=== PATIENT | female | born 1955 | race Caucasian/White ===

== ENCOUNTER 2021-08-21 09:29 | Emergency (ER) | payer OTHER, SELFPAY ==
[2021-08-21 09:35] VITALS: BP 145/72; PULSE 73; RESP 16; TEMP 36.4; O2SAT 98
[2021-08-21 09:48] VITALS: BP 145/72; PULSE 73; RESP 16; TEMP 36.4; O2SAT 98
--- NOTE | 2021-08-21 10:03 | ED.URI ---
HPI - URI/Sore Throat General Chief Complaint: Upper Respiratory Infection Stated Complaint: sore throat, upper respiratory Time Seen by Provider: 08/21/21 09:51 Source: patient and RN notes reviewed Mode of arrival: ambulatory Limitations: no limitations History of Present Illness HPI Narrative: Patient presents today complaining of 5-day history of congestion, postnasal drip, sore throat, cough. Denies fever or shortness of breath. Patient states her grandson was ill last week and has passed his illness around to other members of the family. History of diabetes. Patient has been taking Emergen-C without relief. She did receive a flu vaccine. She has not been vaccinated against COVID-19. Patient declines a swab for influenza or COVID-19 today. MD elicited complaint: cough and nasal congestion Related Data Home Medications Medication Instructions Recorded Confirmed fluoxetine 20 mg PO DAILY 08/21/21 08/21/21 metformin 500 mg PO BID 08/21/21 08/21/21 rosuvastatin 5 mg PO DAILY 08/21/21 08/21/21 Allergies Allergy/AdvReac Type Severity Reaction Status Date / Time Penicillins Allergy Unknown Hives Verified 08/21/21 09:43 Review of Systems Review of Systems: CONSTITUTIONAL: Denies body aches, fever, chills, or sweats. EYES: Denies visual changes, redness, or discharge. ENT: Denies rhinorrhea, or otalgia.+ Congestion, sore throat, postnasal drip CARDIOVASCULAR: Denies chest pain, palpitations, or edema. RESPIRATORY: Deniesdyspnea. + Cough GASTROINTESTINAL: Denies abdominal pain, nausea, vomiting, or diarrhea. GENITOURINARY: Denies dysuria or hematuria. SKIN: Denies rash, itching, or wounds. MUSCULOSKELETAL: Denies back pain, joint pain, or myalgia. NEUROLOGIC: Denies headache, numbness, tingling, or weakness. PSYCH: Denies depression or anxiety. [facility] Family History Family History Father Family history of elevated blood lipids Family history of coronary artery disease Social History Social History Smoking status: Never smoker Alcohol intake: never Comments At time of signature, I have reviewed and agree with nursing past medical, surgical, social and family history unless otherwise noted. Please see nursing chart for further information. There is no relevant family history pertinent to the presenting complaint Exam Narrative: GENERAL: Well-appearing, well-nourished, and in no acute distress. HEAD: Normocephalic, atraumatic. EYES: EOMI. No redness or drainage. Conjunctivae normal. ENT: Mucous membranes pink and moist. Nares congested. No rhinorrhea. TMs normal bilaterally. Throat normal. Uvula midline. NECK: Normal AROM. Supple. No lymphadenopathy. CHEST: No respiratory distress. Clear to auscultation. HEART: Regular rate and rhythm. No murmur appreciated. Normal peripheral pulses. EXTREMITIES: Normal range of motion. No edema. SKIN: Warm, dry, no rash. Capillary refill normal. Normal skin turgor. NEURO: No focal deficits. Alert and oriented x3. Gait steady. PSYCH: Normal affect. No signs of depression or anxiety. Course Vital Signs Vital signs: Vital Signs Temperature 97.6 F 08/21/21 09:35 Pulse Rate 73 08/21/21 09:35 Respiratory Rate 16 08/21/21 09:35 Blood Pressure 145/72 H 08/21/21 09:35 Pulse Oximetry 98 08/21/21 09:35 Temperature 97.6 F 08/21/21 09:48 Pulse Rate 73 08/21/21 09:48 Respiratory Rate 16 08/21/21 09:48 Blood Pressure 145/72 H 08/21/21 09:48 Pulse Oximetry 98 08/21/21 09:48 Reviewed. Pt has been instructed to follow up with her PCP regarding her elevated blood pressure today. MDM - URI/Sore Throat Differential Diagnosis Differential diagnosis: Likely upper respiratory infection, otitis media, sinusitis, viral infection, influenza and other (COVID-19) Lab Data Labs: Strep Screen Presumptive
== END 2021-08-21 10:11 | disposition home or self-care (01) ==
PROVIDERS: Emergency Provider Nurse Practitioner; PCP Nurse Practitioner Family
DX: J06.9 Acute upper respiratory infection, unspecified (principal); E78.00 Pure hypercholesterolemia, unspecified; E11.9 Type 2 diabetes mellitus without complications; F32.A Depression, unspecified; Z96.653 Presence of artificial knee joint, bilateral
CPT/HCPCS: 87081; 87880; 99203; G0463

== ENCOUNTER 2023-03-06 12:13 | Emergency (ER) | payer OTHER, SELFPAY ==
[2023-03-06 12:33] VITALS: BP 169/77; PULSE 80; RESP 16; TEMP 36.7; O2SAT 99
--- NOTE | 2023-03-06 12:47 | ED.URI ---
HPI - URI/Sore Throat General Chief Complaint: Upper Respiratory Infection Stated Complaint: strep Time Seen by Provider: 03/06/23 12:47 Source: patient, RN notes reviewed and old records reviewed Mode of arrival: ambulatory Limitations: no limitations History of Present Illness HPI Narrative: 67-year-old female presents to the [facility] with complaints of a sore throat for 4-5 days. No treatment prior to arrival. Denies fevers. Denies cough. No other symptoms other than a sore throat. Related Data Home Medications Medication Instructions Recorded Confirmed fluoxetine 20 mg tablet 20 mg PO DAILY 08/21/21 03/06/23 metformin 500 mg tablet 500 mg PO BID 08/21/21 03/06/23 rosuvastatin 5 mg tablet 5 mg PO DAILY 08/21/21 03/06/23 glipizide 5 mg tablet 5 mg PO DAILY 03/06/23 03/06/23 Allergies Allergy/AdvReac Type Severity Reaction Status Date / Time Penicillins Allergy Intermediate Hives Verified 03/06/23 12:31 Review of Systems Review of Systems: All systems reviewed & are unremarkable except as noted in HPI and below Constitutional: Constitutional: Reports no additional constitutional complaints Eyes: Eyes: Reports no additional eye complaints ENT: Reports as per HPI and Reports sore throat Cardiovascular: Cardiovascular: Reports no additional cardiovascular complaints, Denies chest pain and Denies dyspnea Respiratory: Respiratory: Reports no additional respiratory complaints, Denies chest congestion, Denies cough and Denies dyspnea Gastrointestinal: Gastrointestinal: Reports no additional gastrointestinal complaints, Denies abdominal pain, Denies nausea and Denies vomiting Musculoskeletal: Musculoskeletal: Reports no additional musculoskeletal complaints Integumentary/Breasts: Skin/Breast: Reports system reviewed and no additional complaints, except as docu Neurologic: Reports system reviewed and no additional complaints, except as documented Psychiatric: Psychiatric: Reports no additional psychiatric complaints Allergic/Immunologic: Allergic/Immunologic: Reports no additional allergic/immunologic complaints [facility] Family History Family History Father Family history of elevated blood lipids Family history of coronary artery disease Social History Social History Smoking status: Never smoker Alcohol intake: never Comments At the time of my signature, I reviewed and agree with the nursing past medical, surgical, social, and family history. There is no relevant family history pertinent to the patient complaint. Exam Const: General: cooperative, healthy appearing, comfortable, no acute distress, well developed, alert and well nourished Nutritional Appearance: well nourished Orientation/consciousness: patient oriented x3 Limitations: no limitations HENMT: Head: normal to inspection Ears: hearing grossly normal bilaterally, external ears normal, TM's normal bilaterally and EAC's normal Face/Nose/Sinus: Normal external nose present, Normal nares present, Normal nasal mucous membranes and turbinates present and normal facial exam Face and sinus: normal facial exam Mouth: Yes Normal oral and palatal mucosa present, Yes lip normal and Yes moist mucous membranes Throat: posterior oropharynx normal, uvula midline and postnasal drainage Eyes: General: appearance normal, both eyes and all related structures Alignment and Position: alignment normal Periorbital: periorbital findings normal Pupils: Equal, round and reactive pupils present EOM: EOMs intact bilaterally Neck: Neck: normal visual inspection, full ROM, no lymphadenopathy and no meningeal signs Chest: Chest palpation & inspection: normal inspection of the chest Resp: Effort & Inspection: normal respiratory effort and able to speak in complete sentences Auscultation: clear to auscultation bilaterally, no crackles, no rales, no rhonchi and no
== END 2023-03-06 13:15 | disposition home or self-care (01) ==
PROVIDERS: Emergency Provider Nurse Practitioner; PCP Nurse Practitioner Family
DX: J02.0 Streptococcal pharyngitis (principal); E78.00 Pure hypercholesterolemia, unspecified; E11.9 Type 2 diabetes mellitus without complications; Z79.84 Long term (current) use of oral hypoglycemic drugs; F32.A Depression, unspecified; Z96.653 Presence of artificial knee joint, bilateral
CPT/HCPCS: 87081; 87147; 87880; 99213; G0463

== ENCOUNTER 2023-10-06 15:17 | Emergency (ER) | payer OTHER, SELFPAY ==
--- NOTE | ~2023-10-06 | XR_ITS ---
XR foot RT min 3V DATE: 10/06/2023 15:39 INDICATION: Dropped wrench on distal foot and toes one week ago TECHNIQUE: 4 views COMPARISON: None FINDINGS: Mild plantar and posterior calcaneal enthesopathy. There is a virtually nondisplaced fracture of the neck of the proximal phalanx of the third toe, with soft tissue swelling of this digit. No other recent fracture or dislocation is detected. IMPRESSION: Fracture of neck of proximal phalanx of third toe Reviewed, dictated and finalized at location [facility] [employer]
[2023-10-06 15:29] VITALS: BP 153/75; PULSE 82; RESP 18; TEMP 36.4; O2SAT 100
--- NOTE | 2023-10-06 15:33 | ED.LOWEXIN ---
HPI - Extremity Injury (Lower) General Chief Complaint: Extremity Injury, Lower Stated Complaint: Right Foot Injury Source: patient, RN notes reviewed and old records reviewed Mode of arrival: ambulatory Limitations: no limitations History of Present Illness HPI Narrative: 68-year-old female presents to [facility] with complaints right 3rd toe pain this started 10 days ago after she dropped a wrench on toe. Patient states does not feel it is healing as quickly as she thought it would. Patient states has slight swelling and discoloration. MD complaint: foot injury Onset (ago): day(s) () Injury: Right: toes Related Data Home Medications Medication Instructions Recorded Confirmed fluoxetine 20 mg tablet 20 mg PO DAILY 08/21/21 10/06/23 metformin 500 mg tablet 500 mg PO BID 08/21/21 10/06/23 glipizide 5 mg tablet 5 mg PO DAILY 03/06/23 10/06/23 Allergies Allergy/AdvReac Type Severity Reaction Status Date / Time Penicillins Allergy Intermediate Hives Verified 10/06/23 15:21 Review of Systems Constitutional: Constitutional: Reports no additional constitutional complaints, Denies body ache(s), Denies chills, Denies fatigue, Denies fever(s) and Denies headache(s) Eyes: Eyes: Reports no additional eye complaints and Denies blurry vision ENT: Reports system reviewed and no additional complaints, except as documented, Denies vertigo, Denies dizziness, Denies ear discharge, Denies otalgia, Denies facial pain, Denies headache(s), Denies nasal congestion, Denies nasal discharge, Denies sinus pain, Denies sinus pressure and Denies sore throat Cardiovascular: Cardiovascular: Reports no additional cardiovascular complaints, Denies chest pain, Denies chest pain at rest, Denies rapid heart rate and Denies dyspnea Respiratory: Respiratory: Reports no additional respiratory complaints, Denies chest congestion, Denies cough, Denies pain on inspiration, Denies pain with cough and Denies dyspnea Gastrointestinal: Gastrointestinal: Denies abdominal pain, Denies diarrhea, Denies nausea and Denies vomiting Musculoskeletal: Comments: Right toe /foot pain following injury Integumentary/Breasts: Skin/Breast: Denies rash Neurologic: Reports system reviewed and no additional complaints, except as documented, Denies vertigo, Denies dizziness and Denies headache(s) Endocrine: Endocrine: Denies fatigue [facility] Family History Family History Father Family history of elevated blood lipids Family history of coronary artery disease Social History Social History Smoking status: Never smoker Alcohol intake: never Comments At the time of my signature, I reviewed and agree with the nursing past medical, surgical, social, and family history. There is no relevant family history pertinent to the patient complaint. Exam Const: General: cooperative, healthy appearing, no acute distress and well nourished Nutritional Appearance: well nourished Orientation/consciousness: patient oriented x3 Limitations: no limitations HENMT: Head: normal to inspection and normocephalic Ears: external ears normal, TM's normal bilaterally, mastoids normal and Abnormal EAC present Face/Nose/Sinus: normal facial exam Face and sinus: normal facial exam Mouth: Yes Normal oral and palatal mucosa present, Yes oropharynx normal and Yes moist mucous membranes Throat: tonsils normal, uvula midline and no uvular edema Eyes: General: appearance normal, both eyes and all related structures Sclera: sclerae normal Pupils: Equal, round and reactive pupils present Resp: Effort & Inspection: normal respiratory effort, able to speak in complete sentences, no audible wheezes, no cough, no respiratory distress and no retractions Cardio: Rate: regular rate Skin: General skin exam: normal color and no rashes or lesions noted Neuro: General: patient oriented x3
[2023-10-06 15:36] VITALS: BP 153/75; PULSE 82; RESP 18; TEMP 36.4; O2SAT 100
== END 2023-10-06 16:00 | disposition home or self-care (01) ==
PROVIDERS: Emergency Provider Registered Nurse; PCP Nurse Practitioner Family
DX: S92.514A Nondisplaced fracture of proximal phalanx of right lesser toe(s), initial encounter for closed fracture (principal); W20.8XXA Other cause of strike by thrown, projected or falling object, initial encounter; E78.00 Pure hypercholesterolemia, unspecified; E11.9 Type 2 diabetes mellitus without complications; F32.A Depression, unspecified; Z96.653 Presence of artificial knee joint, bilateral
CPT/HCPCS: 73630; 99214; G0463

== ENCOUNTER 2024-08-19 17:12 | Emergency (ER) | payer OTHER, SELFPAY ==
--- NOTE | ~2024-08-19 | XR_ITS ---
EXAM: XR lumbar spine 2-3V DATE: 08/19/2024 17:52 HISTORY: low back pain . COMPARISON: None available. FINDINGS: 5 nonrib-bearing lumbar-type vertebral bodies. Pedicles intact. Exaggerated lumbar lordosi s. Moderate scoliosis. 2-3 mm retrolistheses at L1-2 through L3-4. Vertebral body heights preserved. Multilevel loss of disc height and marginal osteophytosis, severe at L5-S1. Severe facet hypertrophy and sclerosis at L4-5 and L5-S1. No fracture or dislocation. IMPRESSION: Scoliosis. Multilevel grade 1 retrolistheses. Multilevel degenerative disc disease, sever e at L5-S1. Multilevel severe facet arthropathy. Reviewed, dictated and finalized at location [facility] IMPRESSION: Scoliosis. Multilevel grade 1 retrolistheses. Multilevel degenerati ve disc disease, severe at L5-S1. Multilevel severe facet arthropathy.
[2024-08-19 17:16] VITALS: BP 186/82; PULSE 78; RESP 20; TEMP 36.8; O2SAT 100
--- NOTE | 2024-08-19 17:36 | ED_ITS ---
HPI - General Adult General Chief complaint: Back Pain/Injury Stated complaint: lower back pain Source: patient Mode of arrival: ambulatory Limitations: no limitations History of Present Illness HPI narrative: Patient presents for evaluation of low back pain for last 5 days. She cannot identify any precipitating cause or injury. Pain is constant, like an electrical shock, shooting down the posterior aspect of the right lower extremity through the buttock. She rates her pain 10/10 in severity. She denies any paresthesias. No history of similar symptoms. She tried taking tylenol and ibuprofen without any improvement in her symptoms thereafter. Related Data Home Medications Medication Instructions Recorded Confirmed metformin 500 mg tablet 500 mg PO BID 08/21/21 10/06/23 Allergies Allergy/AdvReac Type Severity Reaction Status Date / Time Penicillins Allergy Intermediate Hives Verified 10/06/23 15:21 Review of Systems Review of Systems: CONSTITUTIONAL: Denies fever, chills, or sweats. EYES: Denies visual changes, redness, or discharge. ENT: Denies rhinorrhea, congestion, sore throat, or otalgia. CARDIOVASCULAR: Denies chest pain, palpitations, or edema. RESPIRATORY: Denies cough or dyspnea. GASTROINTESTINAL: Denies abdominal pain, nausea, vomiting, or diarrhea. GENITOURINARY: Denies dysuria or hematuria. SKIN: Denies rash or itching. MUSCULOSKELETAL: Reports low back pain without radiation into the RLE NEUROLOGIC: Denies headache, numbness, dizziness, or weakness. PSYCHIATRIC: Denies anxiety or depression. [facility] Past Medical History Medical History (Updated 08/19/24 @ 18:44 by ROMI Sierra, BC) No pertinent past medical history Right sided sciatica Surgical History Surgical History History of knee replacement Family History Family History Father Family history of elevated blood lipids Family history of coronary artery disease Social History Social History Smoking status: Never smoker Alcohol intake: never Substance use: never Living arrangements: with family Gender identity (if verbalized by the patient): Female Spiritual care concerns: No Exam Narrative: GENERAL: Well-appearing, well-nourished, and in no acute distress. HEAD: Normocephalic, atraumatic. EYES: PERRLA and EOMI. ENT: Nares clear, no rhinorrhea or epistaxis. Mucous membranes moist. Oropharynx without tonsillar hypertrophy exudate or other lesions. Bilateral TMs pearly cornejo nonbulging NECK: Supple. No adenopathy or masses. No carotid bruits or JVD CHEST: Clear to auscultation. No respiratory distress. No wheezes rales or rhonchi HEART: Regular rate and rhythm. No murmur heard. Normal peripheral pulses. ABDOMEN: Soft, nontender, nondistended, normal active bowel sounds. BACK: Tenderness in midline of lumbar spine EXTREMITIES: Normal range of motion. No edema. SKIN: Warm, dry, no rash. NEURO: No focal deficits. Alert and oriented x3. PSYCH: Normal mood and affect. Course Course Emergency Course: This is a 69-year-old female who presented for evaluation of low back pain with radiation to right lower extremity. X-ray showed DDD, arthropathy, and scoliosis. Given toradol while here. She had improvement in her pain following administration of medication. Her exam is consistent with sciatica. Will dc with medrol dose natacha, hydrocodone and flexeril. Application of warm moist heat may help. Follow up with primary provider. Go to the ER for worsening symptoms. Pt in agreement with plan of care. Level of Care: Express Care Visit Vital Signs Vital signs: Vital Signs Temperature 36.8 C 08/19/24 17:16 Pulse Rate 78 08/19/24 17:16 Respiratory Rate 20 08/19/24 17:16 Blood Pressure 186/82 H 08/19/24 17:16 Pulse Oximetry 100 08/19/24 17:16 Oxygen Delivery Room Air 08/19/24 17:16 Temperature 36.8 C 08/19/24 17:16 Pulse Rate 78 08/19/24 17:16 Respiratory Rate 20 08/19/24 17:16 Blood Pressure 186/82 H 08/19/24 17:16 Pulse Oximetry 100 08/19/24 17:16 Oxygen Delivery Room Air 08/19/24 17:16 Medical Decision Making Vital Signs Vital Signs: Vital Signs Temperature 36.8 C 08/19/24 17:16 Pulse Rate 78 08/19/24 17:16 Respiratory Rate 20 08/19/24 17:16 Blood Pressure 186/82 H 08/19/24 17:16 Pulse Oximetry 100 08/19/24 17:16 Oxygen Delivery Room Air 08/19/24 17:16 Temperature 36.8 C 08/19/24 17:16 Pulse Rate 78 08/19/24 17:16 Respiratory Rate 20 08/19/24 17:16 Blood Pressure 186/82 H 08/19/24 17:16 Pulse Oximetry 100 08/19/24 17:16 Oxygen Delivery Room Air 08/19/24 17:16 Imaging Data Radiologist's impression: EXAM: XR lumbar spine 2-3V DATE: 08/19/2024 17:52 HISTORY: low back pain . COMPARISON: None available. FINDINGS: 5 nonrib-bearing lumbar-type vertebral bodies. Pedicles intact. Exaggerated lumbar lordosis. Moderate scoliosis. 2-3 mm retrolistheses at L1-2 through L3-4. Vertebral body heights preserved. Multilevel loss of disc height and marginal osteophytosis, severe at L5-S1. Severe facet hypertrophy and sclerosis at L4-5 and L5-S1. No fracture or dislocation. IMPRESSION: Scoliosis. Multilevel grade 1 retrolistheses. Multilevel degenerative disc disease, severe at L5-S1. Multilevel severe facet arthropathy. Discharge Plan Discharge Clinical Impression: Scoliosis, Right sided sciatica Patient Disposition: Home, Self-Care Condition: Stable Instructions: Antibiotic Form, Sciatica (ED) Patient Language: Macanese Prescriptions: New methylprednisolone 4 mg tablets,dose pack See Rx Instructions .ROUTE .COMPLEX Qty: 21 0RF Rx Instructions: for 6 days hydrocodone-acetaminophen 5-325 mg tablet 1 - 2 tablet PO Q6H PRN (Reason: pain) Qty: 15 0RF cyclobenzaprine 10 mg tablet 10 mg PO TID PRN (Reason: muscle spasm) Qty: 15 0RF No Action metformin 500 mg Tablet 500 mg PO BID Follow-up/Referrals: Steph Barney APRN [Primary Care Provider] - Time of Disposition: 18:44
[2024-08-19] MEDS: KETOROLAC 30 MG/ML VIAL (*BKC) IM (17:43)
== END 2024-08-19 18:50 | disposition home or self-care (01) ==
PROVIDERS: Emergency Provider Nurse Practitioner; PCP Nurse Practitioner Family
DX: M54.31 Sciatica, right side (principal); M41.9 Scoliosis, unspecified
CPT/HCPCS: 72100; 96372; 99213; G0463; J1885

== ENCOUNTER 2025-03-11 09:17 | Emergency (ER) | payer OTHER, SELFPAY ==
--- OUTSIDE RECORDS SUMMARY | 2025-03-11 09:20 | XMS_ITS | Data Portability ---
Author Organization [facility] MARIA Willis SIMaeve Larson Address [address] [place] [id number] Assessment No assessment recorded. Plan of Treatment Reminders Order Date Submit Date Provider Last Modified By Organization Details Last Modified Time Details Appointments None recorded. Lab TSH, serum or plasma 2014 015 [facility], [address] [place], [place] [address]palomo Cash, [address], [place], [address], 5 06:29:44 CBC w/ auto diff 2014 015 [facility], [address] [place] [address], [address], [place], [address], 5 06:29:42 lipid panel, serum 2014 015 [facility], [address] [place] [address], [address], [place], [address], 5 06:29:43 CMP, serum or plasma 2014 015 [facility], [address] [place], [place] [address]palomo Cash, [address], [place], [address], 5 06:29:43 HbA1c (hemoglobi n A1c), blood 2014 015 [facility], [address] [place], [place] [address]palomo Cash, [address], [place], [address], 5 06:29:44 Referral None recorded. Procedures None recorded. Surgeries None recorded. Imaging mammogram, screening 2015 016 [email or web address] Not available 6 10:46:27 EKG interpreta tion only - Needing ekg with interpreta tion- (preop eval) 2014 015 HIM[facility] Not available 5 14:52:40 x-ray, chest 2014 015 [facility] Not available 5 12:38:22 Medication Orders metformin 500 mg tablet 2014 015 [facility] [address] [place], [address], 5 16:16:32 fluoxetine 20 mg tablet 2014 015 [facility], [address] [place], [address], 5 16:16:32 metformin 500 mg tablet 2014 015 INTERFACE [id number], [address] , [place], [place], [id number], 5 10:37:47 Patient TargetsNo targets recorded. Patient Instructions Encounter Date Encounter Id Patient Instructions Last Modified By Organization Details Last Modified Time 03/07/2015 [id number] When You Want to Lose Weight: Care Instructions dbogue Not available 03/07/2015 10:37:32 06/07/2015 [id number] When You Want to Lose Weight: Care Instructions dbogue Not available 06/07/2015 16:16:32 12/06/2015 [id number] osteoarthritis: care instructions [email or web address] Not available 12/06/2015 11:17:16 When You Want to Lose Weight: Care Instructions Not available 12/06/2015 11:17:16 Reason for Referral None Reported. Results Created Date Observation Date Name Description Value Unit Range Abnormal Flag Note LastModifiedBy Organization Detail LastModifiedTime 03/07/20 15 03/08/2015 CBC w/ auto diff WBC 5.2 x10e3 /uL 3.4-10 .8 Not Available [facility] ([facility]) [address] [facility], [place], [address], 03/08/2015 06:29:42 03/07/20 15 03/08/2015 CBC w/ auto diff RBC 4.72 x10e6 /uL 3.77-5 .28 Not Available [facility] ([facility]) [address] [facility], [place], [address], 03/08/2015 06:29:42 03/07/20 15 03/08/2015 CBC w/ auto diff hemoglobin 14.0 g/dL 11.1-1 5.9 Not Available [facility] ([facility]) [address] [place], [address], 03/08/2015 06:29:42 03/07/20 15 03/08/2015 CBC w/ auto diff hematocrit 42.5 % 34.0-4 6.6 Not Available [facility] ([facility]) [address] [place], [address], 03/08/2015 06:29:42 03/07/20 15 03/08/2015 CBC w/ auto diff MCV 90 fL 79-97 Not Available [facility] ([facility]) [address] [place], [address], 03/08/2015 06:29:42 03/07/20 15 03/08/2015 CBC w/ auto diff MCH 29.7 pg 26.6-3 3.0 Not Available [facility] ([facility]) [address] [place], [address], 03/08/2015 06:29:42 03/07/20 15 03/08/2015 CBC w/ auto diff MCHC 32.9 g/dL 31.5-3 5.7 Not Available [facility] ([facility]) [address] [place], [address], 03/08/2015 06:29:42 03/07/20 15 03/08/2015 CBC w/ auto diff RDW 13.3 % 12.3-1 5.4 Not Available [facility] ([facility]) [address] [place], [address], 03/08/2015 06:29:42 03/07/20 15 03/08/2015 CBC w/ auto diff neutrophils 57 % Not Available [facility] ([facility]) [address] [place], [address], 03/08/2015 06:29:42 03/07/20 15 03/08/2015 CBC w/ auto diff lymphs 31 % Not Available [facility] ([facility]) [address] [place], [address], 03/08/2015 06:29:42 03/07/2003/08/2015 CBC w/ auto diff monocytes 8 % Not Available [facility] ([facility]) [address] [place], [address], 03/08/2015 06:29:42 03/07/2003/08/2015 CBC w/ auto diff eos 4 % Not Available [facility] ([facility]) [address] [place], [address], 03/08/2015 06:29:42 03/07/2003/08/2015 CBC w/ auto diff basos 0 % Not Available [facility] ([facility]) [address] [place], [address], 03/08/2015 06:29:42 03/07/2003/08/2015 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 0 Not Available [facility] ([facility]) [address] [place], [address], 03/08/2015 06:29:42 03/07/20 15 03/08/2015 CBC w/ auto diff lymphs (absolute) 1.6 x10e3 /uL 0.7-3. 1 Not Available [facility] ([facility]) [address] [facility], [place], [address], 03/08/2015 06:29:42 03/07/2003/08/2015 CBC w/ auto diff monocytes(ab solute) 0.4 x10e3 /uL 0.1-0. 9 Not Available [facility] ([facility]) [address] [facility], [place], [address], 03/08/2015 06:29:42 03/07/20 15 03/08/2015 CBC w/ auto diff eos (absolute) 0.2 x10e3 /uL 0.0-0. 4 Not Available [facility] ([facility]) [address] [facility], [place], [address], 03/08/2015 06:29:42 03/07/2003/08/2015 CBC w/ auto diff baso (absolute) 0.0 x10e3 /uL 0.0-0. 2 Not Available [facility] ([facility]) [address] [facility], [place], [address], 03/08/2015 06:29:42 03/07/2003/08/2015 CBC w/ auto diff immature granulocytes 0 % Not Available [facility] ([facility]) [address] [facility], [place], [address], 03/08/2015 06:29:42 03/07/2003/08/2015 CBC w/ auto diff immature grans (abs) 0.0 x10e3 /uL 0.0-0. 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 Not Available [facility] ([facility]) [address] [place], [address], 03/08/2015 06:29:42 03/07/2003/08/2015 CBC w/ auto diff hematology comments: TERMINAL MAKE UP OPERATOR Not Available [facility] ([facility] [address] [place], [address], 03/08/2015 06:29:42 03/07/2003/08/2015 CMP, serum or plasm a glucose, serum 212 mg/dL 65-99 high Not Available [facility] ([facility]) [address] [place], [address], 03/08/2015 06:29:43 03/07/2003/08/2015 CMP, serum or plasm a BUN 11 mg/dL 6-24 Not Available [facility] ([facility]) [address] [place], [address], 03/08/2015 06:29:43 03/07/2003/08/2015 CMP, serum or plasm a creatinine, serum 0.89 mg/dL 0.57-1 .00 Not Available [facility] ([facility]) [address] [place], [address], 03/08/2015 06:29:43 03/07/2003/08/2015 CMP, serum or plasm a eGFR if nonafricn AM 72 mL/mi n/1.7 3 >59 Not Available [facility] ([facility] [address] [place], [address], 03/08/2015 06:29:43 03/07/2003/08/2015 CMP, serum or plasm a eGFR if africn AM 83 mL/mi n/1.7 3 >59 Not Available [facility] ([facility]) [address] [place], [address], 03/08/2015 06:29:43 03/07/2003/08/2015 CMP, serum or plasm a BUN/creatini ne ratio 12 9-23 Not Available [facility] ([facility]) [address] [place], [address], 03/08/2015 06:29:43 03/07/2003/08/2015 CMP, serum or plasm a sodium, serum 140 mmol/ L 134-14 4 Not Available [facility] ([facility]) [address] [place], [address], 03/08/2015 06:29:43 03/07/2003/08/2015 CMP, serum or plasm a potassium, serum 4.3 mmol/ L 3.5-5. 2 Not Available [facility] ([facility]) [address] [place], [address], 03/08/2015 06:29:43 03/07/2003/08/2015 CMP, serum or plasm a chloride, serum 98 mmol/ L 97-108 Not Available [facility] ([facility]) [address] [place], [address], 03/08/2015 06:29:43 03/07/2003/08/2015 CMP, serum or plasm a carbon dioxide, total 25 mmol/ L 18-29 Not Available [facility] ([facility]) [address] [place], [address], 03/08/2015 06:29:43 03/07/2003/08/2015 CMP, serum or plasm a calcium, serum 9.6 mg/dL 8.7-10 .2 Not Available [facility] ([facility]) [address] [place], [address], 03/08/2015 06:29:43 03/07/2003/08/2015 CMP, serum or plasm a protein, total, serum 7.2 g/dL 6.0-8. 5 Not Available [facility] ([facility]) [address] [place], [address], 03/08/2015 06:29:43 03/07/2003/08/2015 CMP, serum or plasm a albumin, serum 4.6 g/dL 3.5-5. 5 Not Available [facility] ([facility]) [address] [place], [address], 03/08/2015 06:29:43 03/07/2003/08/2015 CMP, serum or plasm a globulin, total 2.6 g/dL 1.5-4. 5 Not Available [facility] ([facility]) [address] [place], [address], 03/08/2015 06:29:43 03/07/2003/08/2015 CMP, serum or plasm a A/G ratio 1.8 1.1-2. 5 Not Available [facility] ([facility]) [address] [place], [address], 03/08/2015 06:29:43 03/07/2003/08/2015 CMP, serum or plasm a bilirubin, total 0.4 mg/dL 0.0-1. 2 Not Available [facility] ([facility]) [address] [place], [address], 03/08/2015 06:29:43 03/07/2003/08/2015 CMP, serum or plasm a alkaline phosphatase, S 84 IU/L 39-117 Not Available [facility] ([facility]) [address] [facility] [place], [address], 03/08/2015 06:29:43 03/07/2003/08/2015 CMP, serum or plasm a AST (SGOT) 19 IU/L 0-40 Not Available [facility] ([facility]) [address] [facility] [place], [address], 03/08/2015 06:29:43 03/07/2003/08/2015 CMP, serum or plasm a ALT (SGPT) 16 IU/L 0-32 Not Available [facility] ([facility]) [address] [facility] [place], [address], 03/08/2015 06:29:43 03/07/20 15 03/08/2015 lipid panel , serum cholesterol, total 239 mg/dL 100-19 9 high Not Available [facility] ([facility]) [address] [facility] [place], [address], 03/08/2015 06:29:43 03/07/20 15 03/08/2015 lipid panel , serum triglyceride s 598 mg/dL 0-149 critical high Not Available [facility] ([facility]) [address] [place], [address], 03/08/2015 06:29:43 03/07/20 15 03/08/2015 lipid panel , serum HDL cholesterol 29 mg/dL >39 low ACCOR DING TO ATP-I II GUIDE LINES , HDL-C >59 MG/DL IS CONSI DERED A NEGAT YAYA RISK FACTO R FOR CHD. Not Available [facility] ([facility]) [address] [place], [address], 03/08/2015 06:29:43 03/07/20 15 03/08/2015 lipid panel , serum VLDL cholesterol eileen COMMEN T mg/dL 5-40 THE CALCU LATIO N FOR THE VLDL BETSY STERO L IS NOT VALID WHEN TRIGL YCERI DE LEVEL IS >400 MG/DL . Not Available [facility] ([facility]) [address] [facility], [place], [address], 03/08/2015 06:29:43 03/07/20 15 03/08/2015 lipid panel , serum LDL cholesterol calc COMMEN T mg/dL 0-99 TRIGL YCERI DE RESUL T INDIC ATED IS TOO HIGH FOR AN ACCUR ATE LDL BETSY STERO L ESTIM ATION . Not Available [facility] ([facility]) [address] [place], [address], 03/08/2015 06:29:43 03/07/20 15 03/08/2015 lipid panel , serum comment: TERMINAL MAKE UP OPERATOR Not Available [facility] ([facility]) [address] [facility] [place], [address], 03/08/2015 06:29:43 03/07/20 15 03/08/2015 HbA1c (hemo globi n A1c), blood hemoglobin A1C 9.5 % 4.8-5. 6 high INCRE ASED RISK FOR DIABE ZAHIRA: 5.7 - 6.4 DIABE ZAHIRA: >6.4 GLYCE STEPHANIE CONTR OL FOR ADULT S WITH DIABE ZAHIRA: <7.0 Not Available [facility] ([facility]) [address] [facility] [place], [address], 03/08/2015 06:29:44 03/07/20 15 03/08/2015 TSH, serum or plasm a TSH 2.200 uIU/m L 0.450- 4.500 Not Available [facility] ([facility]) [address] [facility] [place], [address], 03/08/2015 06:29:44 11/27/19 16 11/28/2015 CMP, serum or plasm a glucose, serum 135 mg/dL 65-99 above high normal Not Available [facility] ([facility]) [address] [facility] [place], [address], 11/28/2015 06:28:38 11/27/19 16 11/28/2015 CMP, serum or plasm a BUN 13 mg/dL 6-24 Not Available [facility] ([facility]) [address] [facility] [place], [address], 11/28/2015 06:28:38 11/27/19 16 11/28/2015 CMP, serum or plasm a creatinine, serum 0.82 mg/dL 0.57-1 .00 Not Available [facility] ([facility]) [address] [facility] [place], [address], 11/28/2015 06:28:38 11/27/19 16 11/28/2015 CMP, serum or plasm a eGFR if nonafricn AM 79 mL/mi n/1.7 3 >59 Not Available [facility] ([facility]) [address] [facility] [place], [address], 11/28/2015 06:28:38 11/27/19 16 11/28/2015 CMP, serum or plasm a eGFR if africn AM 91 mL/mi n/1.7 3 >59 Not Available [facility] ([facility]) [address] [facility] [place], [address], 11/28/2015 06:28:38 11/27/19 16 11/28/2015 CMP, serum or plasm a BUN/creatini ne ratio 16 9-23 Not Available [facility] ([facility]) [address] [place], [address], 11/28/2015 06:28:38 11/27/19 16 11/28/2015 CMP, serum or plasm a sodium, serum 141 mmol/ L 134-14 4 Not Available [facility] ([facility]) [address] [place], [address], 11/28/2015 06:28:38 11/27/19 16 11/28/2015 CMP, serum or plasm a potassium, serum 4.7 mmol/ L 3.5-5. 2 Not Available [facility] ([facility]) [address] [place], [address], 11/28/2015 06:28:38 11/27/19 16 11/28/2015 CMP, serum or plasm a chloride, serum 102 mmol/ L 97-108 Not Available [facility] ([facility]) [address] [place], [address], 11/28/2015 06:28:38 11/27/19 16 11/28/2015 CMP, serum or plasm a carbon dioxide, total 24 mmol/ L 18-29 Not Available [facility] ([facility]) [address] [place], [address], 11/28/2015 06:28:38 11/27/19 16 11/28/2015 CMP, serum or plasm a calcium, serum 8.9 mg/dL 8.7-10 .2 Not Available [facility] ([facility] [address] [place], [address], 11/28/2015 06:28:38 11/27/19 16 11/28/2015 CMP, serum or plasm a protein, total, serum 6.7 g/dL 6.0-8. 5 Not Available [facility] ([facility]) [address] [place], [address], 11/28/2015 06:28:38 11/27/19 16 11/28/2015 CMP, serum or plasm a albumin, serum 4.1 g/dL 3.5-5. 5 Not Available [facility] ([facility]) [address] [place], [address], 11/28/2015 06:28:38 11/27/19 16 11/28/2015 CMP, serum or plasm a globulin, total 2.6 g/dL 1.5-4. 5 Not Available [facility] ([facility] [address] [place], [address], 11/28/2015 06:28:38 11/27/19 16 11/28/2015 CMP, serum or plasm a A/G ratio 1.6 1.1-2. 5 Not Available [facility] ([facility] [address] [place], [address], 11/28/2015 06:28:38 11/27/1911/28/2015 CMP, serum or plasm a bilirubin, total 0.3 mg/dL 0.0-1. 2 Not Available [facility] ([facility] [address] [place], [address], 11/28/2015 06:28:38 11/27/19 16 11/28/2015 CMP, serum or plasm a alkaline phosphatase, S 92 IU/L 39-117 Not Available [facility] ([facility]) [address] [facility], [place], [address], 11/28/2015 06:28:38 11/27/19 16 11/28/2015 CMP, serum or plasm a AST (SGOT) 14 IU/L 0-40 Not Available [facility] ([facility]) [address] [place], [address], 11/28/2015 06:28:38 11/27/19 16 11/28/2015 CMP, serum or plasm a ALT (SGPT) 14 IU/L 0-32 Not Available [facility] ([facility]) [address] [facility], [place], [address], 11/28/2015 06:28:38 11/27/19 16 11/28/2015 lipid panel , serum cholesterol, total 205 mg/dL 100-19 9 above high normal Not Available [facility] ([facility]) [address] [place], [address], 11/28/2015 06:28:40 11/27/19 16 11/28/2015 lipid panel , serum triglyceride s 362 mg/dL 0-149 above high normal Not Available [facility] ([facility]) [address] [place], [address], 11/28/2015 06:28:40 11/27/19 16 11/28/2015 lipid panel , serum HDL cholesterol 34 mg/dL >39 below low normal ACCOR DING TO ATP-I II GUIDE LINES , HDL-C >59 MG/DL IS CONSI DERED A NEGAT YAYA RISK FACTO R FOR CHD. Not Available [facility] ([facility]) [address] [place], [address], 11/28/2015 06:28:40 11/27/19 16 11/28/2015 lipid panel , serum VLDL cholesterol eileen 72 mg/dL 5-40 above high normal Not Available [facility] ([facility]) [address] [facility] [place], [address], 11/28/2015 06:28:40 11/27/19 16 11/28/2015 lipid panel , serum LDL cholesterol calc 99 mg/dL 0-99 Not Available [facility] ([facility]) [address] [facility] [place], [address], 11/28/2015 06:28:40 11/27/19 16 11/28/2015 lipid panel , serum comment: TERMINAL MAKE UP OPERATOR Not Available [facility] ([facility]) [address] [facility] [place], [address], 11/28/2015 06:28:40 11/27/19 16 11/28/2015 HbA1c (hemo globi n A1c), blood hemoglobin A1C 7.4 % 4.8-5. 6 above high normal PRE-D IABET ES: 5.7 - 6.4 DIABE ZAHIRA: >6.4 GLYCE STEPHANIE CONTR OL FOR ADULT S WITH DIABE ZAHIRA: <7.0 Not Available [facility] ([facility]) [address] [facility], [place], [address], 11/28/2015 06:28:40 11/27/19 16 11/28/2015 TSH, serum or plasm a TSH 3.600 uIU/m L 0.450- 4.500 Not Available [facility] ([facility]) [address] [place], [address], 11/28/2015 06:28:41 03/15/20 15 03/14/2015 x-ray , chest No observ ation record ed. [email or web address] Not Available 2014 16:02:25 03/21/20 15 03/13/2015 EKG inter preta tion only No observ ation record ed. dbogue Not Available 2014 16:02:25 Result Notes None recorded. Problems Name Problem SNOMED Code Status Onset Date Resolution Date Notes Provider Name and Address Organization Details Recorded Time Diabetes mellitus 27958301 Active Steph anne, [place] - SI 6 09:47:56 Obesity 186556720 Active Steph anne, [place] - SI 6 09:47:56 Hyperlipidemia 80337489 Active Steph anne, [place] - [place] 6 09:47:56 Mixed anxiety and depressive disorder 721143023 David anne, [place] - [place] 6 09:47:56 Osteoarthritis 577997613 Active Vanessa anne, [place] - [place] 6 09:47:56 Problem Notes None recorded. Procedures Surgical History Date Name Laterality Status Provider Name and Address Organization Details Recorded Time 4 Breast Surgery completed Jeremie Oneal MA [facility] 03/07/2015 10:02:47 Imaging Results None recorded. Procedure Notes None recorded. Medical Equipment None Reported. Allergies Allergen ID Allergen Name Allergen Category Reaction Reaction Severity Criticality Documentation Date Start Date Code Code System Note Provider Name and Address Organization Details Recorded Time 66652 Product containin g penicilli n (product) medicatio n anaphylax is severe Not available 03/07/2015 71608 8001 SNOMED Jeremie Oneal MA null, [place] - [place] 5 10:02:47 Medications Name Sig Start Date Stop Date Status Note LastModified by Organization Details LastModified Time metformin 500 mg tablet TAKE ONE TABLET BY MOUTH TWICE DAILY active Not Available Not Available No t Available simvastatin 20 mg tablet TAKE ONE TABLET BY MOUTH ONCE DAILY AT BEDTIME 016 active Not Available Not Available Not Avai lable fluoxetine 20 mg tablet TAKE ONE TABLET BY MOUTH ONCE DAILY active Not Available Not Available No t Available fluoxetine 10 mg capsule TAKE ONE capsule BY MOUTH ONCE DAILY 016 active Not Available Not Available Not Avai lable Pneumovax-23 25 mcg/0.5 mL injection syringe active Not Available Not Available Not Available fenofibrate 160 mg tablet Take 1 tablet(s) EVERY NIGHT by oral route. active Not Available Not Available No t Available Afluria [id number] (PF) 45 mcg (15 mcg x 3)/0.5 mL IM syringe active Not Available Not Available Not Available Vitals Date Recorded Body height Oxygen saturation Oxygen saturation in Arterial blood by Pulse oximetry Body weight Heart rate Body temperature Body mass index (BMI) Systolic blood pressure Diastolic blood pressure Provider Name and Address Organization Details Last Updated DateTime 6 162.56 cm 100 % 100 % 08071.6 66035 g 64 /min 97.6 [degF] 35.6 kg/m2 122 mm[Hg] 80 mm[Hg] Jeremie Oneal MA [facility] 6 09:13:15 Date Recorded Oxygen saturation Oxygen saturation in Arterial blood by Pulse oximetry Body weight Body temperature Body height Body mass index (BMI) Heart rate Systolic blood pressure Diastolic blood pressure Provider Name and Address Organization Details Last Updated DateTime 5 98 % 98 % 56031.6 43775 g 98.2 [degF] 162.56 cm 37.1 kg/m2 77 /min 130 mm[Hg] 90 mm[Hg] Jeremie Oneal MA [facility] 5 10:02:47 Date Recorded Body weight Oxygen saturation Oxygen saturation in Arterial blood by Pulse oximetry Body temperature Heart rate Body mass index (BMI) Body height Systolic blood pressure Diastolic blood pressure Provider Name and Address Organization Details Last Updated DateTime 5 09362.8 25922 g 98 % 98 % 98.3 [degF] 73 /min 35.7 kg/m2 162.56 cm 126 mm[Hg] 78 mm[Hg] Jeremie Oneal MA [facility] 5 15:40:57 Social History Question Answer Notes LastModified by Organizat ion Details LastModified Time Tobacco Smoking Status Never Smoker Jeremie Oneal MA [facility], [facility] 03/07/2015 10:02:47 What Is Your Level Of Caffeine Consumption? Moderate [email or web address] Information not available 03/07/2015 What Type Of Diet Are You Following? REGULAR [email or web address] Information not available 03/07/2015 How Much Tobacco Do You Smoke? No [email or web address] Information not available 03/07/2015 General Stress Level High [email or web address] Information not available 03/07/2015 Sex: Unknown Functional Status Question Answer Note LastModified by Organization D etails LastModified Time What is your level of alcohol consumption? None [email or web address] Information not available 03/07/2015 What is your exercise level? None [email or web address] Information not available 03/07/2015 Mental Status None recorded. Family History Relationship Description Onset Age of this Age Resolved Age Notes LastModified by Organization Details LastModified Time Mother Carcinoma of breast Not available 2014 10:02:47 Medical History Condition Response Coronary Artery Disease N Other N Atrial Fibrillation N High Blood Pressure N Depression N COPD N Blood Clots N Anxiety Disorder N Muscle, Joint, or Bone Problems N Acid Reflux (GERD) N Cancer Y Stroke N High Cholesterol N Liver Disease N Headaches N Kidney or Bladder Problems N Thyroid Problems N GI Problems N Skin Problems N Anemia N Heart Attack (PA) N Diabetes Y Seizures/Epilepsy N Asthma N Allergies N Hepatitis N Heart Failure N Osteoporosis N Gynecological HistoryNo gynecological history recorded. Obstetrics History GPAL:G 0 P 0 0 0 0 Immunizations Vaccine Type Date Status Note Provider Nam e and Address Organization Details Recorded Time Tdap 03/07/2015 completed Not Available [facility]/2019 02:30:17 Past Encounters Encounter ID Performer Location Encounter Start Date Encounter Closed Date Diagnosis/Indication Diagnosis SNOMED-CT Code Diagnosis ICD10 Code Diagnosis Note [id number] [facility] ([facility]) [address] [place] [address] 03/07/2015 09:48:27 03/07/2015 10:44:44 Pre-surgery evaluation [id number] Patient has bilateral knee replacemen t schedule with Dr. Velasquez in April. Diabetes mellitus 15511011 ADA diet. Restarting metformin 500 mg bid. Obesity 907132916 Encour aged diet and exercise. Will improve activity after knee surgery. Active or passive immunization [id number] Needs Tdap. [id number] [facility] ([facility]ult [facility]) [address] [place] [address] 06/07/2015 15:18:39 06/07/2015 16:14:37 Mixed anxiety and depressive disorder 503757261 Continue fluoxetine 20 mg daily. Coping techniques discussed. Hyperlipidemia 80094915 Continue simvastati n 20 mg q hs. Labs freddie. Refill medication after labs in case dose needing changed. Obesity [id number] Diet a nd exercise encouraged . Diabetes mellitus [id number] Metformin 500 mg bid to continue. ADA diet. Labs freddie. [id number] Steph Barney [facility] [place] (Adult Med) [address] [place] [address] 12/06/2015 09:01:57 12/06/2015 10:46:27 Hyperlipidemia [id number] E78.2 Wishes to decrease cholestero l on own with diet and exercise. Stop fenofibrat e and simvastati n. Obesity [id number] E66.9 Diet and exercise encouraged . Diabetes mellitus [id number] E11.9 Metformin 500 mg bid to continue. ADA diet. A1C 7.3. Continue to goal a1c <7.0. Mixed anxi ety and depressive disorder [id number] F34.1 Continue fluoxetine 20 mg daily. Coping techniques discussed. Osteoarthritis [id number] M19.90 Was going to have right knee surgery with Dr. Garcia, however job change, insurance change, so patient unable to get surgery done 12/31/15 as previously planned. Screening mammography [id number] Z12.31 Will order for patient to get prior to insurance change 01/02/16. Health Concerns Section Related Observation LastModified by Organization Detai ls LastModified Time None Recorded Concern Status LastModified by Organization Details LastModified Time None Recorded Advance Directives Directive None Recorded Payers Encounter Date Sequence Insurance Name Policy Number Policy Hackett Covered Member ID Hackett Member ID Guarantor Name 03/07/2015 1 [place] DEPARTMENT OF PUBLIC A[place] [facility] [id number] [facility] 06/07/2015 1 [facility] (MEDICAID HMO) [id number] [facility] [id number] [facility] 12/06/2015 1 [facility] (MEDICAID HMO) [id number] [facility] [id number] [facility] Notes Date Note Type Note Provider Name and Address Organization Details Recorded Time 03/07/2015 text/html Left breast lumpectomy-benign. Last mammogram 2011 and were all normal. 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 Last pap 2010. Mother with breast cancer diagnosed age 7575 years old. Father - acute leukemia. Declines flu shot every fall. Tdap > 10 years ago. Colonoscopy 2011- colonoscopy place in [facility], 1 polyp removed. Patient to get records for us to determine follow up. 19 years ago had severe kidney infection in right kidney. Has used ibuprofen routinely for discomfort over the years. Wants labs to check kidney function as well- also required for pre-op. Left lateral knee with scar from skin cancer- melanoma. ANA MARIA Rich 03/07/2015 10:38:08 06/07/2015 text/html Rescheduled mammogram/pap/ellie al exam due to pt schedule. Colonoscopy few years ago had polyp- 2017 due again. ANA MARIA Rich 06/07/2015 16:16:50 12/06/2015 text/html Diabetes F/UReported bypatient.Labs:las t A1C result: 7.3Notes:Doing well on metformin and ADA diet.Hyperlipidemi aReported bypatient.Type of hyperlipidemia:com bined Control:improving Compliance:complia nt with dietNotes:Doesn't wish to start statin or fenofibrate. Wishes to do diet mods only. ANA MARIA Rich 12/06/2015 09:48:45 OBGyn Episode No OBEpisode recorded.
--- OUTSIDE RECORDS SUMMARY | 2025-03-11 09:20 | XMS_ITS | Referral Summary ---
Author Organization [facility] Address [address] [place] [address] Care Team Providers Care Automotive Quality Engineer Name Role Phone Steph Barney TREE TRIMMING SUPERVISOR Primary Care Provider + Allergies Active Allergy Reactions Criticality Noted Date Comments Penicillins Medications thiamine (vitamin B-1) 100 mg tablet 100 mg. 0 0 5 Active calcium carbonate (CALCIUM 500) 1,250 MG (500 mg of elemental calcium) tablet 0 0 5 Active ibuprofen (ADVIL,MOTRIN) 200 mg tablet take 2 Tablet by oral route every 4 hours as needed with food 0 0 5 Active metFORMIN (GLUCOPHAGE) 500 mg tablet take 1 tablet by oral route every day with morning and evening meals 0 0 5 Active VITAMIN D2 50,000 unit capsule 7 Active clindamycin (CLEOCIN) 300 mg capsule Take two capsules PO one hour to dental work 2 capsule 4 2 Active clindamycin (CLEOCIN) 300 mg capsule Take 2 tablets 1 hour prior to procedure and one tablet 6 hours after procedure 3 capsule 4 Active FLUoxetine (PROzac) 20 mg tablet 4 Active clindamycin (CLEOCIN) 300 mg capsule TAKE 3 CAPSULES BY MOUTH 1 HOUR PRIOR TO PROCEDURE AND 1 CAPSULE 6 HOURS AFTER PROCEDURE 3 capsule 4 Active Active Problems Problem Noted Date Diagnosed Date Acquired genu valgum 01/16/2015 Overview (01/09/2017): 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 Never 05/11/2024 Q2: How many drinks containi ng alcohol do you have on a typical day when you are drinking? Patient does not drink Q3: How often do you have si x or more drinks on one occasion? 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 Gender Identity Not on file Sexual Orientation Not on file Last Filed Vital Signs Vital Sign Reading Time Taken Comments Blood Pressure 155/80 05/11/2024 3:00 PM CDT Pulse 78 05/11/2024 3:00 PM CDT Temperature - - Respiratory Rate 18 05/11/2024 3:00 PM CDT Oxygen Saturation - - Inhaled Oxygen Concentration - - Weight 89.4 kg (197 lb) 05/11/2024 3:00 PM CDT Height 165.1 cm (5' 5) 05/11/2024 3:00 PM CDT Body Mass Index 32.78 05/11/2024 3:00 PM CDT Plan of Treatment Not on file Insurance [facility] H[facility]/PPO Address: [address] [address] [place] [address] Care Teams Automotive Quality Engineer Relationship Specialty Start Date End Date Steph Barney NP PCP - General 03/26/17
--- OUTSIDE RECORDS SUMMARY | 2025-03-11 09:20 | XMS_ITS | Clinical Summary ---
Author Organization [facility] Address [address] [place] [address] Care Team Providers Care Type Disk Quality Control Supervisor Name Role Phone Steph Barney DEPARTMENT OF SOCIOLOGY CHAIR Primary Care Provider + Allergies Active Allergy [...] Varus deformity, not elsewhere classified, right knee Surgical History Surgery Date Site/Laterality Comments TOTAL KNEE ARTHROPLASTY 05/18/2017 Bilateral Family History Medical History Relation Name Comments Heart disease Other 1 Family history of heart problems; Cancer Other 2 Family history of cancer; Relation Name Status Comments Other 1 Other 2 Social History Tobacco Use Types Packs/Day Years [...] on file 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 Gender Identity Not on file Sexual Orientation Not on file Obstetrics History Last Filed Vital Signs Vital Sign Reading [...] 05/11/2024 3:00 PM CDT Plan of Treatment Health Maintenance Due Date Last Done Comments Breast Cancer Screening-Mammogram 1957 Colon Cancer Screening-Colonoscopy 1957 Depression Screening 1957 Fall Risk Assessment 1957 Hepatitis C Screening 1957 Osteoporosis Screening-Bone Density Scan 1957 Hepatitis B Screening 1975 Pneumococcal vaccine 65+ (2 of 2 - PCV) 08/09/2016 08/09/2015 Well Visit 65+ 2022 Covid-19 Vaccine ( season) 2024 Influenza Vaccine (Season Ended) 2025 05/24/20 20, 08/09/2015 DTaP/Tdap/Td Vaccine (4 - Td or Tdap) 08/05/2032 08/05/2022, 03/07/2015, 10/04/2014 Zoster Vaccine Completed 12/21/2022, 09/06/2021 Insurance [facility] Care Teams Type Disk Quality Control Supervisor Relationship Specialty Start Date End Date Steph Barney NP PCP - General 03/26/17
[2025-03-11 09:24] VITALS: BP 143/74; PULSE 71; RESP 20; TEMP 36.4; O2SAT 99
[2025-03-11 09:45] LABS: EDSTREPNEGPOS1 Negative (Negative)
--- NOTE | 2025-03-11 09:50 | ED.GENADULT ---
HPI - General Adult General Chief complaint: Upper Respiratory Infection Stated complaint: Sore Throat Source: patient Mode of arrival: ambulatory Limitations: no limitations History of Present Illness HPI narrative: Patient presents for evaluation sick symptoms. Symptoms include sore throat, mild cough and diarrhea. Symptom onset four days ago. No fever, chills, nausea, vomiting or SOB. She recently spent time with her grandchildren who have been sick. She has been taking some OTC natural remedies for her symptoms. She does not smoke. Related Data Home Medications ?Medication ?Instructions ?Recorded ?Confirmed ?Last Taken ?Type No Home Medications 03/11/25 03/11/25 Unknown History Allergies Allergy/AdvReac Type Severity Reaction Status Date / Time Penicillins Allergy Intermediate Hives Verified 03/11/25 09:44 Review of Systems Review of Systems: CONSTITUTIONAL: Denies fever, chills, or sweats. EYES: Denies visual changes, redness, or discharge. ENT: Reports sore throat. Denies rhinorrhea, congestion, or otalgia. CARDIOVASCULAR: Denies chest pain, palpitations, or edema. RESPIRATORY: Reports mild cough. Denies dyspnea. GASTROINTESTINAL: Reports diarrhea. Denies abdominal pain, nausea, vomiting GENITOURINARY: Denies dysuria or hematuria. SKIN: Denies rash or itching. MUSCULOSKELETAL: Denies back pain, joint pain, or myalgia. NEUROLOGIC: Denies headache, numbness, dizziness, or weakness. PSYCHIATRIC: Denies anxiety or depression. PMFSH Past Medical History Medical History Right sided sciatica No pertinent past medical history Surgical History Surgical History History of knee replacement Family History Family History Father Family history of elevated blood lipids Family history of coronary artery disease Social History Social History Smoking status: Never smoker Alcohol intake: never Substance use: never Living arrangements: with family Gender identity (if verbalized by the patient): Female Spiritual care concerns: No Exam Narrative: GENERAL: Well-appearing, well-nourished, and in no acute distress. HEAD: Normocephalic, atraumatic. EYES: PERRLA and EOMI. ENT: Nares clear, no rhinorrhea or epistaxis. Mucous membranes moist. Oropharynx without tonsillar hypertrophy exudate or other lesions. Bilateral TMs pearly cornejo nonbulging NECK: Supple. No adenopathy or masses. No carotid bruits or JVD CHEST: Clear to auscultation. No respiratory distress. No wheezes rales or rhonchi HEART: Regular rate and rhythm. No murmur heard. Normal peripheral pulses. ABDOMEN: Soft, nontender, nondistended, normal active bowel sounds. EXTREMITIES: Normal range of motion. No edema. SKIN: Warm, dry, no rash. NEURO: No focal deficits. Alert and oriented x3. PSYCH: Normal mood and affect. Course Course Emergency Course: This is a 69year old that presented for evaluation of sick symptoms. Rapid strep negative. Will send culture. OTC agents for symptom management. Follow up with primary provider. Go to the emergency department for worsening symptoms. Patient is in agreement with plan care. Level of Care: Express Care Visit Vital Signs Vital signs: Vital Signs Temperature 36.4 C 03/11/25 09:24 Pulse Rate 71 03/11/25 09:24 Respiratory Rate 20 03/11/25 09:24 Blood Pressure 143/74 H 03/11/25 09:24 Pulse Oximetry 99 03/11/25 09:24 Oxygen Delivery Room Air 03/11/25 09:24 Temperature 36.4 C 03/11/25 09:24 Pulse Rate 71 03/11/25 09:24 Respiratory Rate 20 03/11/25 09:24 Blood Pressure 143/74 H 03/11/25 09:24 Pulse Oximetry 99 03/11/25 09:24 Oxygen Delivery Room Air 03/11/25 09:24 Medical Decision Making Vital Signs Vital Signs: Vital Signs Temperature 36.4 C 03/11/25 09:24 Pulse Rate 71 03/11/25 09:24 Respiratory Rate 20 03/11/25 09:24 Blood Pressure 143/74 H 03/11/25 09:24 Pulse Oximetry 99 03/11/25 09:24 Oxygen Delivery Room Air 03/11/25 09:24 Temperature 36.4 C 03/11/25 09:24 Pulse Rate 71 03/11/25 09:24 Respiratory Rate 20 03/11/25 09:24 Blood Pressure 143/74 H 03/11/25 09:24 Pulse Oximetry 99 03/11/25 09:24 Oxygen Delivery Room Air 03/11/25 09:24 Lab Data Labs: Lab Results 03/11/25 Range/Units 09:43 POC Grp A Strep Screen Negative (Negative) Discharge Plan Discharge Clinical Impression: Acute viral syndrome Patient Disposition: Home Condition: Stable Instructions: Antibiotic Form, Viral Syndrome (ED) Patient Language: [place] Islander Prescriptions: No Action No Home Medications Follow-up/Referrals: Steph Barney APRN [Primary Care Provider] - Time of Disposition: 09:48
== END 2025-03-11 09:50 | disposition home or self-care (01) ==
PROVIDERS: Emergency Provider Nurse Practitioner; PCP Nurse Practitioner Family
DX: B34.9 Viral infection, unspecified (principal)
CPT/HCPCS: 87081; 87880; 99213; G0463

== ENCOUNTER 2025-03-14 10:16 | Emergency (ER) | payer OTHER, SELFPAY ==
--- NOTE | ~2025-03-14 | XR_ITS ---
XR chest 2V 03/14/2025 11:17 Indication: Cough and shortness of breath Procedure: 2 view chest Comparison: No prior studies for comparison. Findings: Right basilar infiltrate may represent atelectasis or developing pneumonia. There is promin ent right cardiophrenic angle fat pad. No pleural effusion, edema or pneumothorax. No acute osseous a bnormality. Heart size normal. Impression: 1: Right basilar infiltrate may represent atelectasis or developing pneumonia. Reviewed, dictated and finalized at location B. Impression: 1: Right basilar infiltrate may represent atelectasis or developing pneumonia.
[2025-03-14 10:20] VITALS: BP 135/67; PULSE 91; RESP 16; TEMP 37.3; O2SAT 98
[2025-03-14 10:39] LABS: EDSTREPNEGPOS1 Negative (Negative)
[2025-03-14 10:45] LABS: EDCOVIDSCREEN Negative (Negative); EDINFLUASCREEN Negative (Negative); EDINFLUBSCREEN Negative (Negative)
--- NOTE | 2025-03-14 10:55 | ED_ITS ---
HPI - URI/Sore Throat General Chief Complaint: Upper Respiratory Infection Stated Complaint: Sore Throat/Cough Time Seen by Provider: 03/14/25 10:55 Source: patient Mode of arrival: ambulatory Limitations: no limitations History of Present Illness HPI Narrative: 69-year-old female presents with complaint of nasal congestion, cough, fatigue, chest congestion, low-grade fever. Symptoms for the past 4-5 days. Re ports symptoms getting progressively worse. Not taking any vzag-bin-tooezbb medications to treat her symptoms. All systems reviewed and negative except as noted above. Related Data Home Medications ?Medication ?Instructions ?Recorded ?Confirmed ?Last Taken ?Type No Home Medications 03/11/25 03/14/25 Unknown History Allergies Allergy/AdvReac Type Severity Reaction Status Date / Time Penicillins Allergy Intermediate Hives Verified 03/14/25 10:29 Review of Systems Review of Systems: CONSTITUTIONAL: Denies fever, chills, or sweats. reports fatigue. EYES: Denies visual changes, redness, or discharge. ENT: Reports rhinorrhea, congestion, sore throat. Denies otalgia. CARDIOVASCULAR: Denies chest pain, palpitations, or edema. RESPIRATORY: Reports cough chest congestion. Denies dyspnea. GASTROINTESTINAL: Denies abdominal pain, nausea, vomiting, or diarrhea. GENITOURINARY: Denies dysuria or hematuria. SKIN: Denies rash or itching. MUSCULOSKELETAL: Denies back pain, joint pain, or myalgia. NEUROLOGIC: Denies headache, numbness, or weakness. PSYCHIATRIC: Denies anxiety or depression. All other systems reviewed are negative, except as documented in HPI. [facility] Past Medical History Medical History Right sided sciatica No pertinent past medical history Surgical History Surgical History History of knee replacement Family History Family History Father Family history of elevated blood lipids Family history of coronary artery disease Social History Social History Smoking status: Never smoker Alcohol intake: never Substance use: never Living arrangements: with family Gender identity (if verbalized by the patient): Female Spiritual care concerns: No Comments At time of signature, agree with nursing past medical, surgical, social and family history. There is no relevant family history pertinent to the presenting complaint. Exam Narrative: GENERAL: This is a well-nourished, well-developed patient, ill-appearing but no acute distress HEAD: normocephalic, atraumatic. EYES: PERRL. Sclera clear/white. Vision is grossly intact. EARS: External ears normal, auditory canals clear and without drainage, TMs normal without perforation. Hearing grossly intact. NOSE: External nose normal with congestion, purulent nasal drainage THROAT: Mucous membranes moist, erythematous with postnasal drainage NECK: Neck supple, non-tender without lymphadenopathy, masses or thyromegaly. CARDIOVASCULAR: Regular rate and rhythm without murmurs, gallops, or rubs. RESPIRATORY: mildly decreased throughout all lung butt. Breath sounds equal bilaterally. No wheezes, rales, or rhonchi. SKIN: warm, Dry, intact with no suspicious lesions or rash, good texture and turgor. NEURO: awake, alert, and oriented to person, place and time. There were no obvious focal neurologic abnormalities. EXTREMITIES: No joint tenderness, effusion, or edema noted. Course Course Level of Care: Express Care Visit Vital Signs Vital signs: Vital Signs Temperature 37.3 C 03/14/25 10:20 Pulse Rate 91 03/14/25 10:20 Respiratory Rate 16 03/14/25 10:20 Blood Pressure 135/67 03/14/25 10:20 Pulse Oximetry 98 03/14/25 10:20 Oxygen Delivery Room Air 03/14/25 10:20 Temperature 37.3 C 03/14/25 10:20 Pulse Rate 91 03/14/25 10:20 Respiratory Rate 16 03/14/25 10:20 Blood Pressure 135/67 03/14/25 10:20 Pulse Oximetry 98 03/14/25 10:20 Oxygen Delivery Room Air 03/14/25 10:20 reviewed MDM - URI/Sore Throat MDM Narrative Medical decision making narrative: discussed x-ray results with patient. Will prescribe antibiotic due to x-ray findings and patient's symptoms. Patient is alert, nontoxic. Stable for outpatient therapy. Differential Diagnosis Differential diagnosis: Likely upper respiratory infection, sinusitis, viral infection and bronchitis Lab Data Labs: Lab Results 03/14/25 03/14/25 Range/Units 10:37 10:43 POC Influenza A Ag Negative (Negative) POC Influenza B Ag Negative (Negative) POC SARS CoV-2 Ag Negative (Negative) POC Grp A Strep Screen Negative (Negative) Imaging Data My impression: agree with radiologist Radiologist's impression: XR chest 2V 03/14/2025 11:17 Indication: Cough and shortness of breath Procedure: 2 view chest Comparison: No prior studies for comparison. Findings: Right basilar infiltrate may represent atelectasis or developing pneumonia. There is prominent right cardiophrenic angle fat pad. No pleural effusion, edema or pneumothorax. No acute osseous abnormality. Heart size normal. Impression: 1: Right basilar infiltrate may represent atelectasis or developing pneumonia. Discharge Plan Discharge Clinical Impression: Pneumonia Qualifiers: Pneumonia type: due to unspecified organism Patient Disposition: Home Condition: Stable Instructions: Antibiotic Form Additional Instructions: take medications as prescribed. Purchase [id number] Mucinex and take as directed on packaging. Drink at least 64 oz of water a day. Follow-up with your primary care physician in 1 week. Patient Language: Citizen Of [place] Prescriptions: New doxycycline hyclate 100 mg capsule 100 mg PO BID 7 Days Qty: 14 0RF benzonatate 200 mg capsule 200 mg PO TID PRN (Reason: cough) Qty: 20 0RF methylprednisolone [Medrol (Yony)] 4 mg tablets,dose pack See Rx Instructions PO .COMPLEX Qty: 21 0RF Rx Instructions: orally per package directions No Action No Home Medications Follow-up/Referrals: Steph Barney APRN [Primary Care Provider] - 1 Week Time of Disposition: 11:38
--- OUTSIDE RECORDS SUMMARY | 2025-03-14 11:42 | XMS_ITS | Data Portability ---
Author Organization [facility] MARIA Willis SIMaeve Larson Address [address] [place] [id number] Assessment No assessment recorded. Plan of Treatment Reminders Order Date Submit Date Provider Last Modified By Organization Details Last Modified Time Details Appointments None recorded. Lab TSH, serum or plasma 2014 015 [facility], [address] [place], [place] [address]palomo Cahs, [address], [place], [address], 5 06:29:44 CBC w/ auto diff 2014 015 [facility], [address] [place] [address], [address], [place], [address], 5 06:29:42 lipid panel, serum 2014 015 [facility], [address] [place] [address], [address], [place], [address], 5 06:29:43 CMP, serum or plasma 2014 015 [facility], [address] [place], [place] [address]palomo Cash, [address], [place], [address], 5 06:29:43 HbA1c (hemoglobi n A1c), blood 2014 015 [facility], [address] [place], [place] [address]palomo Cash, [address], [place], [address], 5 06:29:44 Referral None recorded. Procedures None recorded. Surgeries None recorded. Imaging mammogram, screening 2015 016 [email or web address] Not available 6 10:46:27 EKG interpreta tion only - Needing ekg with interpreta tion- (preop eval) 2014 015 [facility] Not available 5 14:52:40 x-ray, chest 2014 015 [facility] Not available 5 12:38:22 Medication Orders metformin 500 mg tablet 2014 015 [facility], [address] [place], [address], 5 16:16:32 fluoxetine 20 mg tablet 2014 015 [facility], [address] [place], [address], 5 16:16:32 metformin 500 mg tablet 2014 015 INTERFACE [id number], [address] , [place], [place], [id number], 5 10:37:47 Patient TargetsNo targets recorded. Patient Instructions Encounter Date Encounter Id Patient Instructions Last Modified By Organization Details Last Modified Time 03/07/2015 [id number] When You Want to Lose Weight: Care Instructions dbogue Not available 03/07/2015 10:37:32 06/07/2015 [id number] When You Want to Lose Weight: Care Instructions dbogue Not available 06/07/2015 16:16:32 12/06/2015 [id number] osteoarthritis: care instructions Not available 12/06/2015 11:17:16 When You Want to Lose Weight: Care Instructions [email or web address] Not available 12/06/2015 11:17:16 Reason for Referral None Reported. Results Created Date Observation Date Name Description Value Unit Range Abnormal Flag Note LastModifiedBy Organization Detail LastModifiedTime 03/07/20 15 03/08/2015 CBC w/ auto diff WBC 5.2 x10e3 /uL 3.4-10 .8 Not Available [facility] ([facility]) [address] [facility], [place], [address], 03/08/2015 06:29:42 03/07/20 15 03/08/2015 CBC w/ auto diff RBC 4.72 x10e6 /uL 3.77-5 .28 Not Available [facility] ([facility]) [address] [facility], [place], [address], 03/08/2015 06:29:42 03/07/20 15 03/08/2015 CBC w/ auto diff hemoglobin 14.0 g/dL 11.1-1 5.9 Not Available [facility] ([facility]) [address] [place], [address], 03/08/2015 06:29:42 03/07/20 15 03/08/2015 CBC w/ auto diff hematocrit 42.5 % 34.0-4 6.6 Not Available [facility] ([facility]) [address] [place], [address], 03/08/2015 06:29:42 03/07/20 15 03/08/2015 CBC w/ auto diff MCV 90 fL 79-97 Not Available [facility] ([facility]) [address] [place], [address], 03/08/2015 06:29:42 03/07/20 15 03/08/2015 CBC w/ auto diff MCH 29.7 pg 26.6-3 3.0 Not Available [facility] ([facility]) [address] [place], [address], 03/08/2015 06:29:42 03/07/20 15 03/08/2015 CBC w/ auto diff MCHC 32.9 g/dL 31.5-3 5.7 Not Available [facility] ([facility]) [address] [place], [address], 03/08/2015 06:29:42 03/07/20 15 03/08/2015 CBC w/ auto diff RDW 13.3 % 12.3-1 5.4 Not Available [facility] ([facility]) [address] [place], [address], 03/08/2015 06:29:42 03/07/20 15 03/08/2015 CBC w/ auto diff neutrophils 57 % Not Available [facility] ([facility]) [address] [place], [address], 03/08/2015 06:29:42 03/07/20 15 03/08/2015 CBC w/ auto diff lymphs 31 % Not Available [facility] ([facility]) [address] [place], [address], 03/08/2015 06:29:42 03/07/2003/08/2015 CBC w/ auto diff monocytes 8 % Not Available [facility] ([facility]) [address] [place], [address], 03/08/2015 06:29:42 03/07/2003/08/2015 CBC w/ auto diff eos 4 % Not Available [facility] ([facility]) [address] [place], [address], 03/08/2015 06:29:42 03/07/2003/08/2015 CBC w/ auto diff basos 0 % Not Available [facility] ([facility]) [address] [place], [address], 03/08/2015 06:29:42 03/07/2003/08/2015 CBC w/ auto diff immature cells [employer] Not Available [facility] ([facility]) [address] [place], [address], 03/08/2015 06:29:42 03/07/2003/08/2015 CBC w/ auto diff neutrophils (absolute) 2.9 x10e3 /uL 1.4-7. 0 Not Available [facility] ([facility]) [address] [place], [address], 03/08/2015 06:29:42 03/07/20 15 03/08/2015 CBC w/ auto diff lymphs (absolute) 1.6 x10e3 /uL 0.7-3. 1 Not Available [facility] ([facility]) [address] [facility], [place], [address], 03/08/2015 06:29:42 03/07/2003/08/2015 CBC w/ auto diff monocytes(ab solute) 0.4 x10e3 /uL 0.1-0. 9 Not Available [facility] ([facility]) [address] [facility], [place], [address], 03/08/2015 06:29:42 03/07/20 15 03/08/2015 CBC w/ auto diff eos (absolute) 0.2 x10e3 /uL 0.0-0. 4 Not Available [facility] ([facility]) [address] [facility], [place], [address], 03/08/2015 06:29:42 03/07/2003/08/2015 CBC w/ auto diff baso (absolute) 0.0 x10e3 /uL 0.0-0. 2 Not Available [facility] ([facility]) [address] [facility], [place], [address], 03/08/2015 06:29:42 03/07/2003/08/2015 CBC w/ auto diff immature granulocytes 0 % Not Available [facility] ([facility]) [address] [facility], [place], [address], 03/08/2015 06:29:42 03/07/2003/08/2015 CBC w/ auto diff immature grans (abs) 0.0 x10e3 /uL 0.0-0. 1 Not Available [facility] ([facility]) [address] [facility], [place], [address], 03/08/2015 06:29:42 03/07/2003/08/2015 CBC w/ auto diff NRBC [employer] Not Available [facility] ([facility]) [address] [place], [address], 03/08/2015 06:29:42 03/07/2003/08/2015 CBC w/ auto diff hematology comments: [employer] Not Available [facility] ([facility] [address] [facility] [place], [address], 03/08/2015 06:29:42 03/07/2003/08/2015 CMP, serum or plasm a glucose, serum 212 mg/dL 65-99 high Not Available [facility] ([facility]) [address] [place], [address], 03/08/2015 06:29:43 03/07/2003/08/2015 CMP, serum or plasm a BUN 11 mg/dL 6-24 Not Available [facility] ([facility]) [address] [facility] [place], [address], 03/08/2015 06:29:43 03/07/2003/08/2015 CMP, serum or plasm a creatinine, serum 0.89 mg/dL 0.57-1 .00 Not Available [facility] ([facility]) [address] [facility] [place], [address], 03/08/2015 06:29:43 03/07/2003/08/2015 CMP, serum or plasm a eGFR if nonafricn AM 72 mL/mi n/1.7 3 >59 Not Available [facility] ([facility]) [address] [facility] [place], [address], 03/08/2015 06:29:43 03/07/2003/08/2015 CMP, serum or plasm a eGFR if africn AM 83 mL/mi n/1.7 3 >59 Not Available [facility] ([facility]) [address] [facility] [place], [address], 03/08/2015 06:29:43 03/07/2003/08/2015 CMP, serum or plasm a BUN/creatini ne ratio 12 9-23 Not Available [facility] ([facility]) [address] [place], [address], 03/08/2015 06:29:43 03/07/2003/08/2015 CMP, serum or plasm a sodium, serum 140 mmol/ L 134-14 4 Not Available [facility] ([facility]) [address] [place], [address], 03/08/2015 06:29:43 03/07/2003/08/2015 CMP, serum or plasm a potassium, serum 4.3 mmol/ L 3.5-5. 2 Not Available [facility] ([facility]) [address] [place], [address], 03/08/2015 06:29:43 03/07/2003/08/2015 CMP, serum or plasm a chloride, serum 98 mmol/ L 97-108 Not Available [facility] ([facility]) [address] [place], [address], 03/08/2015 06:29:43 03/07/2003/08/2015 CMP, serum or plasm a carbon dioxide, total 25 mmol/ L 18-29 Not Available [facility] ([facility]) [address] [place], [address], 03/08/2015 06:29:43 03/07/2003/08/2015 CMP, serum or plasm a calcium, serum 9.6 mg/dL 8.7-10 .2 Not Available [facility] ([facility]) [address] [place], [address], 03/08/2015 06:29:43 03/07/2003/08/2015 CMP, serum or plasm a protein, total, serum 7.2 g/dL 6.0-8. 5 Not Available [facility] ([place] [facility]) [address] [place], [address], 03/08/2015 06:29:43 03/07/2003/08/2015 CMP, serum or plasm a albumin, serum 4.6 g/dL 3.5-5. 5 Not Available [facility] ([facility]) [address] [facility] [place], [address], 03/08/2015 06:29:43 03/07/2003/08/2015 CMP, serum or plasm a globulin, total 2.6 g/dL 1.5-4. 5 Not Available [facility] ([facility]) [address] [facility] [place], [address], 03/08/2015 06:29:43 03/07/2003/08/2015 CMP, serum or plasm a A/G ratio 1.8 1.1-2. 5 Not Available [facility] ([facility]) [address] [place], [address], 03/08/2015 06:29:43 03/07/2003/08/2015 CMP, serum or plasm a bilirubin, total 0.4 mg/dL 0.0-1. 2 Not Available [facility] ([facility]) [address] [place], [address], 03/08/2015 06:29:43 03/07/2003/08/2015 CMP, serum or plasm a alkaline phosphatase, S 84 IU/L 39-117 Not Available [facility] ([facility]) [address] [facility] [place], [address], 03/08/2015 06:29:43 03/07/2003/08/2015 CMP, serum or plasm a AST (SGOT) 19 IU/L 0-40 Not Available [facility] ([facility]) [address] [facility] [place], [address], 03/08/2015 06:29:43 03/07/2003/08/2015 CMP, serum or plasm a ALT (SGPT) 16 IU/L 0-32 Not Available [facility] ([facility]) [address] [facility] [place], [address], 03/08/2015 06:29:43 03/07/20 15 03/08/2015 lipid panel , serum cholesterol, total 239 mg/dL 100-19 9 high Not Available [facility] ([facility]) [address] [facility] [place], [address], 03/08/2015 06:29:43 03/07/20 15 03/08/2015 lipid panel , serum triglyceride s 598 mg/dL 0-149 critical high Not Available [facility] ([facility]) [address] [place], [address], 03/08/2015 06:29:43 03/07/20 15 03/08/2015 lipid panel , serum HDL cholesterol 29 mg/dL >39 low ACCOR DING TO ATP-I II GUIDE LINES , HDL-C >59 MG/DL IS CONSI DERED A NEGAT YAYA RISK FACTO R FOR CHD. Not Available [facility] ([facility]) [address] [place], [address], 03/08/2015 06:29:43 03/07/20 15 03/08/2015 lipid panel , serum VLDL cholesterol eileen COMMEN T mg/dL 5-40 THE CALCU LATIO N FOR THE VLDL BETSY STERO L IS NOT VALID WHEN TRIGL YCERI DE LEVEL IS >400 MG/DL . Not Available [facility] ([facility]) [address] [facility], [place], [address], 03/08/2015 06:29:43 03/07/20 15 03/08/2015 lipid panel , serum LDL cholesterol calc COMMEN T mg/dL 0-99 TRIGL YCERI DE RESUL T INDIC ATED IS TOO HIGH FOR AN ACCUR ATE LDL BETSY STERO L ESTIM ATION . Not Available [facility] ([place] [facility]) [address] [place], [address], 03/08/2015 06:29:43 03/07/20 15 03/08/2015 lipid panel , serum comment: [employer] CLERK Not Available [facility] ([facility]) [address] [facility] [place], [address], 03/08/2015 06:29:43 03/07/20 15 03/08/2015 HbA1c (hemo globi n A1c), blood hemoglobin A1C 9.5 % 4.8-5. 6 high INCRE ASED RISK FOR DIABE ZAHIRA: 5.7 - 6.4 DIABE ZAHIRA: >6.4 GLYCE STEPHANIE CONTR OL FOR ADULT S WITH DIABE ZAHIRA: <7.0 Not Available [facility] ([facility]) [address] [facility] [place], [address], 03/08/2015 06:29:44 03/07/20 15 03/08/2015 TSH, serum or plasm a TSH 2.200 uIU/m L 0.450- 4.500 Not Available [facility] ([facility]) [address] [facility] [place], [address], 03/08/2015 06:29:44 11/27/19 16 11/28/2015 CMP, serum or plasm a glucose, serum 135 mg/dL 65-99 above high normal Not Available [facility] ([facility]) [address] [facility] [place], [address], 11/28/2015 06:28:38 11/27/19 16 11/28/2015 CMP, serum or plasm a BUN 13 mg/dL 6-24 Not Available [facility] ([facility]) [address] [facility] [place], [address], 11/28/2015 06:28:38 11/27/19 16 11/28/2015 CMP, serum or plasm a creatinine, serum 0.82 mg/dL 0.57-1 .00 Not Available [facility] ([facility]) [address] [facility] [place], [address], 11/28/2015 06:28:38 11/27/19 16 11/28/2015 CMP, serum or plasm a eGFR if nonafricn AM 79 mL/mi n/1.7 3 >59 Not Available [facility] ([facility]) [address] [facility] [place], [address], 11/28/2015 06:28:38 11/27/19 16 11/28/2015 CMP, serum or plasm a eGFR if africn AM 91 mL/mi n/1.7 3 >59 Not Available [facility] ([facility]) [address] [facility] [place], [address], 11/28/2015 06:28:38 11/27/19 16 11/28/2015 CMP, serum or plasm a BUN/creatini ne ratio 16 9-23 Not Available [facility] ([facility]) [address] [place], [address], 11/28/2015 06:28:38 11/27/19 16 11/28/2015 CMP, serum or plasm a sodium, serum 141 mmol/ L 134-14 4 Not Available [facility] ([facility]) [address] [place], [address], 11/28/2015 06:28:38 11/27/19 16 11/28/2015 CMP, serum or plasm a potassium, serum 4.7 mmol/ L 3.5-5. 2 Not Available [facility] ([facility]) [address] [place], [address], 11/28/2015 06:28:38 11/27/19 16 11/28/2015 CMP, serum or plasm a chloride, serum 102 mmol/ L 97-108 Not Available [facility] ([facility]) [address] [place], [address], 11/28/2015 06:28:38 11/27/19 16 11/28/2015 CMP, serum or plasm a carbon dioxide, total 24 mmol/ L 18-29 Not Available [facility] ([facility]) [address] [place], [address], 11/28/2015 06:28:38 11/27/19 16 11/28/2015 CMP, serum or plasm a calcium, serum 8.9 mg/dL 8.7-10 .2 Not Available [facility] ([facility]) [address] [facility] [place], [address], 11/28/2015 06:28:38 11/27/19 16 11/28/2015 CMP, serum or plasm a protein, total, serum 6.7 g/dL 6.0-8. 5 Not Available [facility] ([facility]) [address] [facility] [place], [address], 11/28/2015 06:28:38 11/27/19 16 11/28/2015 CMP, serum or plasm a albumin, serum 4.1 g/dL 3.5-5. 5 Not Available [facility] ([facility]) [address] [facility] [place], [address], 11/28/2015 06:28:38 11/27/19 16 11/28/2015 CMP, serum or plasm a globulin, total 2.6 g/dL 1.5-4. 5 Not Available [facility] ([facility]) [address] [facility] [place], [address], 11/28/2015 06:28:38 11/27/19 16 11/28/2015 CMP, serum or plasm a A/G ratio 1.6 1.1-2. 5 Not Available [facility] ([facility]) [address] [facility] [place], [address], 11/28/2015 06:28:38 11/27/1911/28/2015 CMP, serum or plasm a bilirubin, total 0.3 mg/dL 0.0-1. 2 Not Available [facility] ([facility]) [address] [facility] [place], [address], 11/28/2015 06:28:38 11/27/19 16 11/28/2015 CMP, serum or plasm a alkaline phosphatase, S 92 IU/L 39-117 Not Available [facility] ([facility]) [address] [facility], [place], [address], 11/28/2015 06:28:38 11/27/19 16 11/28/2015 CMP, serum or plasm a AST (SGOT) 14 IU/L 0-40 Not Available [facility] ([facility]) [address] [place], [address], 11/28/2015 06:28:38 11/27/19 16 11/28/2015 CMP, serum or plasm a ALT (SGPT) 14 IU/L 0-32 Not Available [facility] ([facility]) [address] [facility], [place], [address], 11/28/2015 06:28:38 11/27/19 16 11/28/2015 lipid panel , serum cholesterol, total 205 mg/dL 100-19 9 above high normal Not Available [facility] ([facility]) [address] [place], [address], 11/28/2015 06:28:40 11/27/19 16 11/28/2015 lipid panel , serum triglyceride s 362 mg/dL 0-149 above high normal Not Available [facility] ([facility]) [address] [place], [address], 11/28/2015 06:28:40 11/27/19 16 11/28/2015 lipid panel , serum HDL cholesterol 34 mg/dL >39 below low normal ACCOR DING TO ATP-I II GUIDE LINES , HDL-C >59 MG/DL IS CONSI DERED A NEGAT YAYA RISK FACTO R FOR CHD. Not Available [facility] ([facility]) [address] [place], [address], 11/28/2015 06:28:40 11/27/19 16 11/28/2015 lipid panel , serum VLDL cholesterol eileen 72 mg/dL 5-40 above high normal Not Available [facility] ([facility]) [address] [facility] [place], [address], 11/28/2015 06:28:40 11/27/19 16 11/28/2015 lipid panel , serum LDL cholesterol calc 99 mg/dL 0-99 Not Available [facility] ([facility]) [address] [facility] [place], [address], 11/28/2015 06:28:40 11/27/19 16 11/28/2015 lipid panel , serum comment: [employer] CLERK Not Available [facility] ([facility]) [address] [facility] [place], [address], 11/28/2015 06:28:40 11/27/19 16 11/28/2015 HbA1c (hemo globi n A1c), blood hemoglobin A1C 7.4 % 4.8-5. 6 above high normal PRE-D IABET ES: 5.7 - 6.4 DIABE ZAHIRA: >6.4 GLYCE STEPHANIE CONTR OL FOR ADULT S WITH DIABE ZAHIRA: <7.0 Not Available [facility] ([facility]) [address] [facility], [place], [address], 11/28/2015 06:28:40 11/27/19 16 11/28/2015 TSH, serum or plasm a TSH 3.600 uIU/m L 0.450- 4.500 Not Available [facility] ([facility]) [address] [place], [address], 11/28/2015 06:28:41 03/15/20 15 03/14/2015 x-ray , chest No observ ation record ed. [email or web address] Not Available 2014 16:02:25 03/21/20 15 03/13/2015 EKG inter preta tion only No observ ation record ed. dbogue Not Available 2014 16:02:25 Result Notes None recorded. Problems Name Problem SNOMED Code Status Onset Date Resolution Date Notes Provider Name and Address Organization Details Recorded Time Diabetes mellitus 10531991 Active Steph anne, [place] - SI 6 09:47:56 Obesity 756888350 Active Steph anne, [place] - SI 6 09:47:56 Hyperlipidemia 81804130 Active Steph anne, [place] - [place] 6 09:47:56 Mixed anxiety and depressive disorder 295660615 David anne, [place] - SI 6 09:47:56 Osteoarthritis 707642291 Active Vanessa anne, [place] - [place] 6 09:47:56 Problem Notes None recorded. Procedures Surgical History Date Name Laterality Status Provider Name and Address Organization Details Recorded Time 4 Breast Surgery completed Jeremie Oneal MA [facility] 03/07/2015 10:02:47 Imaging Results None recorded. Procedure Notes None recorded. Medical Equipment None Reported. Allergies Allergen ID Allergen Name Allergen Category Reaction Reaction Severity Criticality Documentation Date Start Date Code Code System Note Provider Name and Address Organization Details Recorded Time 83995 Product containin g penicilli n (product) medicatio n anaphylax is severe Not available 03/07/2015 06168 8001 SNOMED Jeremie Oneal MA null, [place] - SI 5 10:02:47 Medications Name Sig [...] Available Not Available No t Available Afluria 1277-2215 (PF) 45 mcg (15 mcg x 3)/0.5 [...] 6 162.56 cm 100 % 100 % 16213.6 02074 g 64 /min 97.6 [degF] 35.6 kg/m2 122 mm[Hg] 80 mm[Hg] Jeremie Oneal MA [facility] 6 09:13:15 Date Recorded Oxygen saturation Oxygen saturation in Arterial blood by Pulse oximetry Body weight Body temperature Body height Body mass index (BMI) Heart rate Systolic blood pressure Diastolic blood pressure Provider Name and Address Organization Details Last Updated DateTime 5 98 % 98 % 61821.6 24346 g 98.2 [degF] 162.56 cm 37.1 kg/m2 77 /min 130 mm[Hg] 90 mm[Hg] Jeremie Oneal MA [facility] 5 10:02:47 Date Recorded Body weight Oxygen saturation Oxygen saturation in Arterial blood by Pulse oximetry Body temperature Heart rate Body mass index (BMI) Body height Systolic blood pressure Diastolic blood pressure Provider Name and Address Organization Details Last Updated DateTime 5 06446.8 70226 g 98 % 98 % 98.3 [degF] 73 /min 35.7 kg/m2 162.56 cm 126 mm[Hg] 78 mm[Hg] Jeremie Oneal MA [facility] 5 15:40:57 Social History Question Answer Notes LastModified by Organizat ion Details LastModified Time Tobacco Smoking Status Never Smoker Jeremie Oneal MA [facility], [facility] 03/07/2015 10:02:47 What Is Your Level Of Caffeine Consumption? Moderate [email or web address] Information not available 03/07/2015 What Type Of Diet Are You Following? REGULAR [email or web address] Information not available 03/07/2015 How Much Tobacco Do You Smoke? No [email or web address] Information not available 03/07/2015 General Stress Level High [email or web address] Information not available 03/07/2015 Sex: Unknown Functional Status Question Answer Note LastModified by Organization D etails LastModified Time What is your level of alcohol consumption? None [email or web address] Information not available 03/07/2015 What is your exercise level? None [email or web address] Information not available 03/07/2015 Mental Status None recorded. Family History Relationship Description Onset Age of this Age Resolved Age Notes LastModified by Organization Details LastModified Time Mother Carcinoma of breast [email or web address] Not available 2014 10:02:47 Medical History Condition [...] Skin Problems N Anemia N Heart Attack ([place]) N Diabetes Y Seizures/Epilepsy N Asthma N Allergies N Hepatitis N Heart Failure N Osteoporosis N Gynecological HistoryNo gynecological history recorded. Obstetrics History GPAL:G 0 P 0 0 0 0 Immunizations Vaccine Type Date Status Note Provider Nam e and Address Organization Details Recorded Time Tdap 03/07/2015 completed Not Available [facility] 10/21/2019 02:30:17 Past Encounters Encounter ID Performer Location Encounter Start Date Encounter Closed Date Diagnosis/Indication Diagnosis SNOMED-CT Code Diagnosis ICD10 Code Diagnosis Note [id number] [facility] (Adult Med) [address] [place] [address] 03/07/2015 09:48:27 03/07/2015 10:44:44 Pre-surgery evaluation [id number] Patient has bilateral knee replacemen t schedule with Dr. Velasquez in April. Diabetes mellitus 35833290 ADA diet. Restarting metformin 500 mg bid. Obesity 861624402 Encour aged diet and exercise. Will improve activity after knee surgery. Active or passive immunization [id number] Needs Tdap. [id number] [facility] (Adult Med) [address] [place] [address] 06/07/2015 15:18:39 06/07/2015 16:14:37 Mixed anxiety and depressive disorder [id number] Continue fluoxetine 20 mg daily. Coping techniques discussed. Hyperlipidemia [id number] Continue simvastati n 20 mg q hs. Labs freddie. Refill medication after labs in case dose needing changed. Obesity [id number] Diet a nd exercise encouraged . Diabetes mellitus [id number] Metformin 500 mg bid to continue. ADA diet. Labs freddie. [id number] Steph Barney [facility] (Adult Med) [address] [place] [address] 12/06/2015 09:01:57 12/06/2015 10:46:27 Hyperlipidemia [id number] E78.2 Wishes to decrease cholestero l on own with diet and exercise. Stop fenofibrat e and simvastati n. Obesity [id number] E66.9 Diet and exercise encouraged . Diabetes mellitus [id number] 09 E11.9 Metformin 500 mg bid to continue. ADA diet. A1C 7.3. Continue to goal a1c <7.0. Mixed anxi ety and depressive disorder [id number] F34.1 Continue fluoxetine 20 mg daily. Coping techniques discussed. Osteoarthritis [id number] M19.90 Was going to have right knee surgery with Dr. Garcia, however job change, insurance change, so patient unable to get surgery done 12/31/15 as previously planned. Screening mammography 24 [id number] Z12.31 Will order for patient to get prior to insurance change 01/02/16. Health Concerns Section Related Observation LastModified by Organization Detai ls LastModified Time None Recorded Concern Status LastModified by Organization Details LastModified Time None Recorded Advance Directives Directive None Recorded Payers Encounter Date Sequence Insurance Name Policy Number Policy Hackett Covered Member ID Hackett Member ID Guarantor Name 03/07/2015 1 [place] [employer] [facility] [id number] [facility] 06/07/2015 1 [facility] (MEDICAID HMO) [id number] [facility] [id number] [facility] 12/06/2015 1 [facility] (MEDICAID HMO) [id number] [facility] [id number] [facility] Notes Date Note Type Note Provider Name and Address Organization Details Recorded Time 03/07/2015 text/html Left breast lumpectomy-benign. Last mammogram 2011 and were all normal. 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 Last pap 2010. Mother with breast cancer diagnosed age 7575 years old. Father - acute leukemia. Declines flu shot every fall. Tdap > 10 years ago. Colonoscopy 2011- colonoscopy place in [facility], 1 polyp removed. Patient to get records [...] had polyp- 2017 due again. ANA MARIA Rcih 06/07/2015 16:16:50 12/06/2015 text/html Diabetes F/UReported bypatient.Labs:las t A1C result: 7.3Notes:Doing well on metformin and ADA diet.Hyperlipidemi aReported bypatient.Type of hyperlipidemia:com bined Control:improving Compliance:complia nt with dietNotes:Doesn't wish to start statin or fenofibrate. Wishes to do diet mods only. ANA MARIA Rich 12/06/2015 09:48:45 OBGyn Episode No OBEpisode recorded.
--- OUTSIDE RECORDS SUMMARY | 2025-03-14 11:48 | XMS_ITS | Referral Summary ---
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
--- OUTSIDE RECORDS SUMMARY | 2025-03-14 11:48 | XMS_ITS | Clinical Summary ---
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
== END 2025-03-14 11:44 | disposition home or self-care (01) ==
PROVIDERS: Emergency Provider Nurse Practitioner Family; PCP Nurse Practitioner Family
DX: J18.9 Pneumonia, unspecified organism (principal); Z20.822 Contact with and (suspected) exposure to COVID-19
CPT/HCPCS: 71046; 87081; 87426; 87804; 87880; 99213; G0463

== ENCOUNTER 2025-07-07 13:50 | Emergency (ER) | payer OTHER, SELFPAY ==
[2025-07-07 14:03] VITALS: BP 137/67; PULSE 92; RESP 20; TEMP 36.2; O2SAT 100
--- NOTE | 2025-07-07 14:26 | ED_ITS ---
HPI - General Adult General Chief complaint: Unspecified Stated complaint: B/P Issues Patient presents to the [facility] with complaints of symptoms that began today while at work with sudden dizziness, weakness, and intermittent shortness of breath. Patient reports she was at work and these symptoms began denies any new or different activities. Patient does report checking her blood pressure and getting a reading of 176/90, no history of high blood pressure or any high readings. Patient denies headache or vision changes. But patient overall did not feel well and thought she should be evaluated. Patient does report several days ago did have 1 day of frequent diarrhea but reports she took electrolyte solutions and significantly rehydrated and does not feel she has any problems with dehydration. Patient also denies any cough, sore throat, headache, nasal congestion abdominal pain, nausea, urinary symptoms,vomiting, or chest pain. Related Data Home Medications ?Medication ?Instructions ?Recorded ?Confirmed ?Last Taken ?Type metformin 500 mg tablet 500 mg PO BID 07/07/25 Unkn own History Allergies Allergy/AdvReac Type Severity Reaction Status Date / Time Penicillins Allergy Intermediate Hives Verified 07/07/25 14:08 Review of Systems Constitutional: Constitutional: Reports as per HPI, Reports fatigue, Denies fever(s), Denies headache(s), Reports lethargy, Reports malaise and Reports weakness Eyes: Eyes: Reports as per HPI, Denies change in vision and Denies loss of vision ENT: Reports system reviewed and no additional complaints, except as documented Cardiovascular: Cardiovascular: Reports as per HPI, Denies acrocyanosis, Denies chest pain, Denies chest pain at rest, Denies chest pain with activity, Denies diaphoresis, Denies syncope, Denies rapid heart rate, Denies pedal edema, Denies edema, Denies irregular heart rhythm, Denies claudication, Denies leg ulcers, Denies leg edema, Reports lightheadedness, Denies radiating jaw, neck or arm pain, Denies palpitations, Denies dyspnea, Denies dyspnea on exertion, Denies orthopnea, Denies paroxysmal nocturnal dyspnea and Denies slow heart rate Comments: elevated blood pressure Respiratory: Respiratory: Reports as per HPI, Denies chest congestion, Denies cough, Denies hemoptysis, Denies excessive phlegm production, Denies pain on inspiration, Denies pain with cough, Reports dyspnea, Reports dyspnea on exertion, Denies snoring, Denies stridor and Denies wheezing Gastrointestinal: Gastrointestinal: Reports as per HPI, Denies abdominal pain, Denies constipation, Denies GI cramping, Denies dyspepsia, Denies heartburn, Denies diarrhea, Denies nausea and Denies vomiting Genitourinary: Genitourinary: Reports as per HPI, Denies flank pain, Denies urinary incontinence, Denies urinary hesitancy and Denies urinary urgency Musculoskeletal: Musculoskeletal: Reports as per HPI, Denies back pain and Denies myalgias Integumentary/Breasts: Skin/Breast: Reports as per HPI, Denies swelling, Denies lesions, Denies rash, Denies sores and Denies wounds Neurologic: Reports as per HPI, Denies Normal hearing present, Denies Neuro- related abnormal movements, Denies Abnormal speech present, Denies abnormal gait, Denies behavioral changes, Denies burning sensations, Denies confusion, Reports vertigo, Reports dizziness, Denies syncope, Denies frequent falls, Denies headache(s), Denies lack of coordination, Denies focal weakness, Denies loss of vision, Denies memory loss, Denies numbness, Denies Other visual disturbances, Denies radicular pain, Denies restless legs, Denies convulsions, Denies seizure-like activity, Denies Sensory deficit (Neuro), Denies tingling, Denies paresthesias, Denies tremor(s), Denies disequilibrium and Reports weakness Psychiatric: Psychiatric: Reports no additional psychiatric complaints Endocrine: Endocrine: Reports no additional endocrine complaints Hematologic/Lymphatic: Hematologic/Lymphatic: Reports no additional hematologic/lymphatic complaints Allergic/Immunologic: Allergic/Immunologic: Reports no additional allergic/immunologic complaints [facility] Past Medical History Medical History Right sided sciatica No pertinent past medical history Surgical History Surgical History History of knee replacement Family History Family History Father Family history of elevated blood lipids Family history of coronary artery disease Social History Social History Smoking status: Never smoker Alcohol intake: never Substance use: never Living arrangements: with family Gender identity (if verbalized by the patient): Female Spiritual care concerns: No Exam Const: General: cooperative, healthy appearing, no acute distress, well developed, alert, awake and Physically active; No comfortable Nutritional Appearance: average body habitus Orientation/consciousness: patient oriented x3 Limitations: no limitations Other: obviously fatigued HENMT: Head: normal to inspection Ears: hearing grossly normal bilaterally, external ears normal and TM's normal bilaterally Mouth: Yes Normal oral and palatal mucosa present, Yes lip normal and Yes tongue normal Eyes: General: appearance normal, both eyes and all related structures Visual Butt: normal visual butt by confrontation Alignment and Position: alignment normal Periorbital: periorbital findings normal Eyelids: eyelids normal Conjunctivae: conjunctivae normal Pupils: Equal, round and reactive pupils present EOM: EOMs intact bilaterally Neck: Neck: normal visual inspection and no lymphadenopathy Resp: Effort & Inspection: normal respiratory effort and able to speak in complete sentences Auscultation: clear to auscultation bilaterally Cardio: Rate: regular rate Heart sounds: S1 normal heart sound present and S2 normal heart sound present Peripheral pulses: posterior tibial pulses present and dorsalis pedis present GI: Inspection: normal to inspection GI Palp: Yes abdominal tenderness Percussion: Yes normal to percussion Auscultation: normal bowel sounds : General: Yes bimanual renal exam normal bilaterally and Yes no CVA tenderness Back/Spine/Pelvis: Back: no CVA tenderness Skin: General skin exam: normal color, no rashes or lesions noted, elasticity normal, no ecchymosis, no erythema, no petechiae and no purpura Lesions: no lesions Rashes: no rashes Trauma: no lacerations or abrasions Wounds: no wounds Hair: normal Nails: normal Neuro: General: oriented to person, oriented to place, oriented to time and patient oriented x3 Cognition (Neuro): normal cognition Speech: normal speech Gait exam (Neuro): Normal gait present Motor exam (neuro): 5/5 motor strength present throughout, Pronator motor function not present, No tremor noted, No asterixis, Motor fasciculations not present, Normal motor muscle tone present throughout and Motor abnormalities not present Sensory Exam: normal sensation Extrem: General: normal to inspection, full ROM, capillary refill normal, no joint enlargement, no pedal edema, no calf tenderness and normal gait Psych: Appearance: grossly normal Mental Status: mental status grossly normal Speech and movement: Normal speech and movement present Affect: normal affect Attitude: cooperative Thought process: Normal thought process present Course Course Level of Care: Express Care Visit Vital Signs Vital signs: Vital Signs Temperature 97.2 F L 07/07/25 14:03 Pulse Rate 92 07/07/25 14:03 Respiratory Rate 20 07/07/25 14:03 Blood Pressure 137/67 07/07/25 14:03 Pulse Oximetry 100 07/07/25 14:03 Oxygen Delivery Room Air 07/07/25 14:03 Temperature 97.2 F L 07/07/25 14:03 Pulse Rate 92 07/07/25 14:03 Respiratory Rate 20 07/07/25 14:03 Blood Pressure 137/67 07/07/25 14:03 Pulse Oximetry 100 07/07/25 14:03 Oxygen Delivery Room Air 07/07/25 14:03 Transfer Transfered to: [facility] Transportation: Other Transfer rationale: non specific symptoms- weakness and dizziness with patient age . No obvious ill symptoms. Accepting physician: Dr Collins Medical Decision Making MDM Narrative Medical decision making narrative: spoke with patient about overall nonspecific symptoms and patient age she should be evaluated in the emergency room where imaging and full laboratory are available for evaluation of symptoms. Given the weakness and dizziness symptoms this could be neurological versus cardiac related which we did not evaluations capabilities at this facility. Spoke with patient about overall transfer to the emergency room patient reports she will drive to her son's house and will have them drive her to the emergency room. Patient declines ambulance transfer and would like go to [facility]. Educated patient on her overall symptoms and if there is something going on it is safer if Ay[facility] picks her up or if she goes by ambulance. Patient declines. Paperwork completed. report called to Georgina charge master coordinator, Dr Collins physician in ER today. Differential Diagnosis Differential Diagnosis: ACS, stroke, dehydration, cardiac arrhythmia, Medical Records Medical records reviewed: Yes I reviewed the external patient's medical records. Vital Signs Vital Signs: Vital Signs Temperature 97.2 F L 07/07/25 14:03 Pulse Rate 92 07/07/25 14:03 Respiratory Rate 20 07/07/25 14:03 Blood Pressure 137/67 07/07/25 14:03 Pulse Oximetry 100 07/07/25 14:03 Oxygen Delivery Room Air 07/07/25 14:03 Temperature 97.2 F L 07/07/25 14:03 Pulse Rate 92 07/07/25 14:03 Respiratory Rate 20 07/07/25 14:03 Blood Pressure 137/67 07/07/25 14:03 Pulse Oximetry 100 07/07/25 14:03 Oxygen Delivery Room Air 07/07/25 14:03 Discharge Plan Discharge Clinical Impression: Dizziness, Weakness, Breath shortness Patient Disposition: Acute Care Hospital Condition: Guarded Prognosis Patient Language: Cameroonian Prescriptions: No Action metformin 500 mg tablet 500 mg PO BID Follow-up/Referrals: PHYSICIAN,MANAGER DELI [Primary Care Provider, Internal Medicine] Time of Disposition: 14:33
== END 2025-07-07 14:31 | disposition short-term general hospital (02) ==
PROVIDERS: Emergency Provider Nurse Practitioner Family
DX: R42 Dizziness and giddiness (principal); R53.1 Weakness; R06.02 Shortness of breath
CPT/HCPCS: 99212; G0463